=== PATIENT | female | born 1960 | race Caucasian/White ===

== ENCOUNTER 2019-11-28 11:19 | Inpatient (IN) | payer OTHER ==
[~2019-11-28] VITALS: Ht 170.2 cm; Wt 69.9 kg
[~2019-11-28 11:19] MED LIST: AMOX1TAB PO; IBUP400T98 PO
--- NOTE | 2019-11-28 11:19 | NUR ---
Patient BIBA BLS, transferred to bed 3. RN evaluating patient at bedside.
[2019-11-28 11:25] VITALS: BP 141/84
--- NOTE | 2019-11-28 11:31 | NUR ---
BIBA C/O GENERALIZED ABDOMINAL PAIN & N/V/D X 2 DAYS. HX OF ESRD, DM, HEART PROBLEM. PER EMS PATIENT DID NOT FINISHED HER DIALYSIS BUT CALLED AMBULANCE TO ER [facility] & SHE LEFT HOSPITAL WITHOUT BEING SEEN. BLOOD SUGAR 200. ABD SOFT. PATIENT STATES PAIN OF 10/10 AT THIS TIME. PATIENT POSITIONED FOR COMFORT; HOB ELEVATED; BEDRAILS UP X2; BED DOWN. ER MD MADE AWARE OF PT STATUS.
[2019-11-28] MEDS ORDERED: NACL 0.9% 1,000 ML IV ONE (11:41)
[2019-11-28] MEDS ORDERED: ONDANSETRON 4 MG/2 ML VIAL IVP ONE (11:45)
--- NOTE | 2019-11-28 11:48 | NUR ---
furniture technician at bedside.
[2019-11-28] MEDS ORDERED: MORPHINE SULFATE 4 MG/ML SYR IVP ONE (12:05)
[2019-11-28 12:10] LABS: HEMATOCRIT 35.7 % (36-48); HEMOGLOBIN 11.3 g/dL (12.0-16.0); MEAN CORPUSCULAR HEMOGLOBIN 27 pg (27-31); MEAN CORPUSCULAR HGB CONC 32 g/dL (33-37); MEAN CORPUSCULAR VOLUME 83.2 fL (80-94); PLATELET COUNT (AUTO) 274 K/uL (140-450); RED BLOOD CELL COUNT(AUTO) 4.29 MIL/uL (4.20-5.40); RED CELL DISTRIBUTION WIDTH 16.1 % (11.6-13.7); WHITE BLOOD COUNT (AUTO) 12.6 K/uL (4.8-10.8)
--- NOTE | 2019-11-28 12:10 | NUR ---
Patient taken to CT scan via wheelchair by tech.
--- NOTE | 2019-11-28 12:25 | NUR ---
Pt noted vomiting, dark brown emesis noted, approximately 100cc noted. Dr. Tya made aware. No new orders for anti-emetics recevied at this time.
[2019-11-28 12:27] LABS: CARBON DIOXIDE 29.4 mmol/L (21-32); POTASSIUM 4.4 mmol/L (3.5-5.1); TOTAL BILIRUBIN 0.5 mg/dL (0.0-1.0)
[2019-11-28 12:30] LABS: CREATININE 6.3 mg/dL (0.6-1.3)
[2019-11-28 12:36] LABS: LYMPHOCYTES % (MANUAL) 8 % (20-46); MONOCYTES % (MANUAL) 2 % (5-12)
--- NOTE | 2019-11-28 12:40 | NUR ---
Pt expresses feeling better at this time. Pain improved. Nausea improved. Pt no longer vomiting. Pt placed into position of comfort. Call light left within reach. All needs addressed.
[2019-11-28] MEDS ORDERED: PROP20TA29 PO (13:39)
[2019-11-28] MEDS ORDERED: ATEN50TA8 PO (13:39)
[2019-11-28] MEDS ORDERED: VITA20002 PO (13:39)
[2019-11-28] MEDS ORDERED: FURO-570 PO (13:39)
[2019-11-28] MEDS ORDERED: METO-485 PO (13:39)
[2019-11-28] MEDS ORDERED: CLOP75TA55 PO (13:39)
[2019-11-28] MEDS ORDERED: CLON0.1T42 PO (13:39)
[2019-11-28] MEDS ORDERED: LISI-420 PO (13:39)
[2019-11-28] MEDS ORDERED: PROM25TA27 PO (13:39)
[2019-11-28] MEDS ORDERED: LON2.5 PO (13:39)
[2019-11-28 14:15] LABS: APPEARANCE,URINE CLEAR (CLEAR); BILIRUBIN,URINE NEGATIVE (NEGATIVE); BLOOD, URINE TRACE-I (NEGATIVE); COLOR,URINE YELLOW (YELLOW); LEUKOCYTE ESTERASE ,URINE NEGATIVE (NEGATIVE); NITRITE, URINE NEGATIVE (NEGATIVE); PH,URINE 8.5 (5.0-9.0); UGLUCOSE 2+ (NEGATIVE)
[2019-11-28 14:26] LABS: HYALINE CASTS, URINE 0-10 /LPF (None Seen); RBC,URINE 0-5 /HPF (0-5); WBC,URINE 0-5 /HPF (0-5)
--- NOTE | 2019-11-28 16:27 | NUR ---
RECEIVED REPORT FROM ER NURSE FOR CONTINUATION OF CARE. PATIENT ORIENTED TO THE UNIT, CALL LIGHT, AND BED. BED RAILS UP, BED IN LOW POSITION, WILL CONTINUE TO MONITOR.
--- NOTE | 2019-11-28 16:27 | NUR ---
Patient will be admitted to care of DR PAEZ. Admited to MS. Will go to room 125B. Belongings list completed. Report to MADAY ESPINOZA.
[2019-11-28] MEDS ORDERED: PROMETHAZINE 25 MG TAB PO PRN (16:55)
[2019-11-28] MEDS ORDERED: HYDROcodone/APAP 5/325 MG 1 TAB TAB PO PRN ×2 (17:00)
[2019-11-28] MEDS ORDERED: ACETAMINOPHEN 325 MG TAB PO PRN (17:00)
[2019-11-28] MEDS ORDERED: cloNIDine 0.1 MG TAB PO PRN (17:00)
[2019-11-28] MEDS ORDERED: POTASSIUM CHLORIDE 10 MEQ TABER PO PRN (17:00)
[2019-11-28] MEDS ORDERED: LORazepam 2 MG/ML VIAL IVP PRN (17:00)
[2019-11-28] MEDS ORDERED: BISACODYL 10 MG SUPP RC PRN (17:00)
[2019-11-28] MEDS ORDERED: ACETAMINOPHEN 650 MG SUPP RC PRN (17:00)
[2019-11-28] MEDS ORDERED: guaiFENesin DM 200/20 MG-10 ML 10 ML UDC PO PRN (17:00)
[2019-11-28] MEDS ORDERED: IPRATROPIUM 0.02% 0.5 MG/2.5 ML NEBU INH PRN (17:00)
[2019-11-28] MEDS ORDERED: MAG SULF 2000 MG/WATER PREMIX 50 ML IV PRN (17:00)
[2019-11-28] MEDS ORDERED: MAGNESIUM OXIDE 400 MG TAB PO PRN (17:00)
[2019-11-28] MEDS ORDERED: diphenhydrAMINE 50 MG/ML VIAL IVP PRN (17:00)
[2019-11-28] MEDS ORDERED: ONDANSETRON 4 MG/2 ML VIAL IVP PRN (17:00)
[2019-11-28] MEDS ORDERED: MORPHINE SULFATE 2 MG/ML SYR IVP PRN (17:00)
[2019-11-28] MEDS ORDERED: ZOLPIDEM 5 MG TAB PO PRN (17:00)
[2019-11-28] MEDS ORDERED: ALUMINUM HYD/MAG/SIMETHICONE 30 ML UDC PO PRN (17:00)
[2019-11-28] MEDS ORDERED: ALBUTEROL 0.083% 2.5 MG/3 ML NEBU INH PRN (17:00)
[2019-11-28] MEDS ORDERED: SODIUM PHOSPHATE 118 ML ENEM RC PRN (17:00)
[2019-11-28] MEDS ORDERED: DOCUSATE SODIUM 250 MG GELCAP PO PRN (17:00)
[2019-11-28] MEDS ORDERED: DEXTROSE 50% 50 ML SYR IVP PRN (17:05)
[2019-11-28] MEDS: METOCLOPRAMIDE 10 MG TAB PO SCH ×2 (18:36→21:48)
--- NOTE | 2019-11-28 19:25 | NUR ---
RECIEVED PT AAOX4 , NID , ON SL - INTACT AND PATENT , WITH HD ACCESS ON CHEST .O2 SAT WNL . ADM. ASSESSMENT DONE , POC DISCUSSED AND VERBALIZE UNDERSTANDING - CALL LIGHT WITHIN REACH , ON SAFETY PRECAUTION PROTOCOL . WILL CONT TO MONITOR - DENIES PAIN AT THIS TIME.
--- NOTE | 2019-11-28 19:25 | NUR ---
REPORT GIVEN TO AUTOMATION AND CONTROLS INSTRUCTOR NURSE FOR CONTINUATION OF CARE.
[2019-11-28 20:00] VITALS: BP 165/79
[2019-11-28] MEDS: cloNIDine 0.1 MG TAB PO SCH (21:47)
[2019-11-28] MEDS: MINOXIDIL 2.5 MG TAB PO SCH (21:47)
[2019-11-28] MEDS: BLOOD GLUCOSE MONITORING 1 DEV DEV FS SCH (21:49)
[2019-11-28] MEDS: INSULIN LISPRO SLIDING SCALE 100 UNITS/ML VIAL SUBQ PRN (21:53)
--- NOTE | 2019-11-28 22:00 | NUR ---
MADE ROUNDS , NO COMPLAIN MADE AT THIS TIME.
[2019-11-29] VITALS: BP 145/70
--- NOTE | 2019-11-29 | NUR ---
MADE ROUNDS , NO S/SXS OF ACUTE DISTRESS NOTED AT THIS TIME . WILL CONT. TO MONITOR.
--- NOTE | 2019-11-29 04:00 | NUR ---
MADE ROUNDS , NO S/SXS OF ACUTE DISTRESS NOTED AT THIS TIME , CALL LIGHT WITHIN REACH.
--- NOTE | 2019-11-29 06:00 | NUR ---
MADE ROUNDS , NO COMPLAIN MADE AT THIS TIME.
[2019-11-29] MEDS: BLOOD GLUCOSE MONITORING 1 DEV DEV FS SCH ×2 (06:12→11:48)
[2019-11-29 06:14] LABS: BASOPHILS % (AUTO) 0.4 % (0.0-2.0); EOSINOPHILS # (AUTO) 0.1 K/uL (0-0.4); EOSINOPHILS % (AUTO) 0.9 % (0.0-4.0); HEMATOCRIT 32.1 % (36-48); HEMOGLOBIN 10.2 g/dL (12.0-16.0); LYMPHOCYTES # (AUTO) 1.3 K/uL (2.5-16.5); LYMPHOCYTES % (AUTO) 13.8 % (20.5-51.1); MEAN CORPUSCULAR HEMOGLOBIN 27 pg (27-31); MEAN CORPUSCULAR HGB CONC 32 g/dL (33-37); MEAN CORPUSCULAR VOLUME 84.5 fL (80-94); MONOCYTES # (AUTO) 0.7 K/uL (0.8-1.0); MONOCYTES % (AUTO) 7.2 % (1.7-9.3); NEUTROPHILS # (AUTO) 7.6 K/uL (1.8-7.7); NEUTROPHILS % (AUTO) 77.7 % (42.2-75.2); PLATELET COUNT (AUTO) 270 K/uL (140-450); RED CELL DISTRIBUTION WIDTH 15.6 % (11.6-13.7); WHITE BLOOD COUNT (AUTO) 9.7 K/uL (4.8-10.8)
[2019-11-29] MEDS: INSULIN LISPRO SLIDING SCALE 100 UNITS/ML VIAL SUBQ PRN ×2 (06:16→12:14)
[2019-11-29 06:20] LABS: ANION GAP 12.5 (8-16); CARBON DIOXIDE 29.3 mmol/L (21-32); POTASSIUM 3.8 mmol/L (3.5-5.1)
--- NOTE | 2019-11-29 07:20 | NUR ---
RECEIVED BEDSIDE REPORT FROM SCIENTIFIC WRITER NURSE FOR CONTINUITY OF CARE. PT AWAKE AND RESTING ON BED AT THIS TIME. PT IS AAOX 3, TO NAME, PLACE, AND TIME. RESPIRATION EVEN AND UNLABORED ON RA. DENIED PAIN, NAUSEA, AND VOMITING. NO SIGNS OF DISTRESS NOTED. IV ON LAC 20G, CLEAN AND INTACT, SL. ELIE CATH ON R CHEST NOTED. OSTOMY BAG ON L LOWER ABD, SMALL AMOUNT OF YELLOW LIQUID STOOL NOTED, L BIG TOE AMPUTATED, OTHERWISE, SKIN DRY AND CLEAN. PT IS ABLE TO AMBULATE WITH ASSIST, MILD WEAKNESS NOTED. CHANGED PT INTO YELLOW GOWN AND SOCKS. DISCUSSED PLAN OF CARE WITH PT AND PT SAID OK. SAFETY MEASURES IN PLACE. BED IN LOW POSITION AND CALL LIGHT WITHIN REACH. DEMONSTRATED TO PT ON HOW TO USE THE CALL LIGHT FOR ASSISTANCE AND PT ABLE TO RETURN.
--- NOTE | 2019-11-29 07:20 | NUR ---
ENDORSED TO AM SHIFT FOR CONT. OF CARE W/TABLE CONDITION.
[2019-11-29 08:00] VITALS: BP 183/82
--- NOTE | 2019-11-29 08:33 | NUR ---
OBTAINED HEMODIALYSIS CONSENT AND PT WAS AWARE THAT SHE IS GOING TO GET HEMODIALYSIS TODAY. CALLED PALOMO [phone] AND PROVIDED INFORMATION OF PT AND CONSENT WAS OBTAINED. CULVER WAS AWARE.
--- NOTE | 2019-11-29 08:34 | NUR ---
PATIENT HAS BEEN SCREENED AND CATEGORIZED MODERATE NUTRITION RISK. PATIENT WILL BE SEEN WITHIN 3-5 DAYS OF ADMISSION. 12/01/19 12/03/[address]
--- NOTE | 2019-11-29 08:52 | NUR ---
DISCHARGE PLANNIN59 Y/O FEMALE FROM HOME, WHO CAME IN DUE TO EPIGASTRIC PAIN, DIARRHEA, NAUSEA AND VOMITING. PAST MEDICAL HISTORY INCLUDE ESRD, HTN AND DIABETES MELLITUS. INITIAL DIAGNOSIS OF GASTRITIS. CURRENT LABS INCLUDE WBC 9.7, H/H 10.2/32.1, NA/K 140/3.8, BUN 38/7.0. URINE AND BLOOD C/S PENDING. CXR ON ADMISSION SHOWED MILD CARDIOMEGALY. CT OF ABD/PELVIS SHOWED SMALL PERICARDIAL EFFUSION. NEPHRO CONSULT WITH DR. PALMER FOR HD. DC PLAN TO HOME ONCE STABLE.
[2019-11-29] MEDS ORDERED: ATENOLOL 50 MG TAB PO SCH (09:00)
[2019-11-29] MEDS: cloNIDine 0.1 MG TAB PO SCH (09:00)
[2019-11-29] MEDS ORDERED: CLOPIDOGREL 75 MG TAB PO SCH (09:00)
[2019-11-29] MEDS ORDERED: FUROSEMIDE 40 MG TAB PO SCH (09:00)
[2019-11-29] MEDS ORDERED: LISINOPRIL 20 MG TAB PO SCH (09:00)
[2019-11-29] MEDS ORDERED: CHOLECALCIFEROL 1,000 IU TAB PO SCH (09:00)
[2019-11-29] MEDS ORDERED: NON-FORMULARY ITEM (Cholecalciferol (Vitamin D3) (Vitamin D3) 50 MCG) PO SCH (09:00)
[2019-11-29] MEDS: MINOXIDIL 2.5 MG TAB PO SCH (09:00)
--- NOTE | 2019-11-29 09:33 | NUR ---
ASSISTED PT TO USED THE BATHROOM AND BACK ON BED SAFELY. GAIT UNSTEADY. EMPTIED OSTOMY BAG AND MEASURED 15 ML. PT IS TALKING TO AGGIE BY BEDSIDE. NO SIGNS OF DISTRESS NOTED. SAFETY MEASURES IN PLACE. BED IN LOW POSITION AND CALL LIGHT WITHIN REACH. BED ALARM ACTIVATED. INSTRUCTED PT TO USE THE CALL LIGHT FOR ANY ASSISTANCE AND PT SAID OK.
[2019-11-29] MEDS: METOCLOPRAMIDE 10 MG TAB PO SCH ×2 (09:56→13:13)
--- NOTE | 2019-11-29 09:57 | NUR ---
ADMINISTERED AM SCHEDULED MEDS, HOLD ALL BP MEDS DUE TO PT IS GOING TO GET HEMODIALYSIS, EDUCATED PT ON MEDS AND PT VERBALIZED UNDERSTANDING. PT IS AWAKE AND TALKING TO , AGGIE, AT BEDSIDE. NO SIGNS OF DISTRESS, BED AT LOWEST POSITION, CALL LIGHT WITHIN REACH.
--- NOTE | 2019-11-29 11:02 | NUR ---
DR PALMER CAME BY TO CONSULT PT'S DIAGNOSIS. DR PALMER ASSESSED AND TALKED TO PT BY BEDSIDE. PT WILL BE GETTING HEMODIALYSIS TODAY, HER TYPICAL SCHEDULE IS MONDAY, MONDAY, AND MONDAY. NO SIGNS OF DISTRESS NOTED. SAFETY MEASURES IN PLACE. BED IN LOW POSITION AND CALL LIGHT WITHIN REACH. BED ALARM ACTIVATED.
--- NOTE | 2019-11-29 11:09 | NUR ---
BEADER TENDER IS BY BEDSIDE AND GETTING PT FOR DIALYSIS. NO SIGNS OF DISTRESS NOTED.
[2019-11-29 12:00] VITALS: BP 170/84
--- NOTE | 2019-11-29 12:14 | NUR ---
PT RECEIVED HER LUNCH TRAY, ADMINISTERED 2 UNITS OF HUMALOG FOR BLOOD GLUCOSE 167, PT TOLERATED WELL. PT IS GOING TO EAT HER LUNCH. MELT HOUSE DRAG OPERATOR IS BY BEDSIDE AND PT IS IN DIALYSIS. NO SIGNS OF DISTRESS NOTED. SAFETY MEASURES IN PLACE. BED IN LOW POSITION AND CALL LIGHT WITHIN REACH. BED ALARM ACTIVATED.
--- NOTE | 2019-11-29 12:15 | NUR ---
FIRE EXTINGUISHER TECHNICIAN assessment/discharge plan Name: Niko Pratt Home Relationship: Pre-Admission Living Arrangements: Lives with Other Other: Niko Pratt Prior ADL Needs Assistance Current DME/02 Name/Tel: no home O2 Current Dialysis Name/Tel: [facility] MWF 6am Healthcare Decision Maker: Patient Advance Directive No Tentative Discharge Plan Summary: Patient is a 59 year old female admitted for gastritis. I met with patient at bedside. Patient alert and oriented x4. Patient lives at home with her Niko Pratt and plans to return home upon discharge. Patient's pcp is Chavo Zamora and she does not have any difficulty filling her prescriptions at pharmacy. She stated she has an [facility] caregiver Naima Arellano who helps her with ADLs and transportation. I offered her education on Advance Directive, patient declined education/information. She does not have any questions/concerns at this time. Molded Goods Spot Picker and/or Sales Agent [employer] will follow up as needed. Signature: RAMÍREZ Diop Date: Nov 29, 2019
--- NOTE | 2019-11-29 13:15 | NUR ---
ADMINISTERED SCHEDULED MEDICATION AT THIS TIME, PT WAS ABLE TO TOLERATE PO MED. PROVIDED MED EDUCATION TO PT, PT VERBALIZED UNDERSTANDING. PT IS IN DIALYSIS. NO SIGNS OF DISTRESS NOTED. DIALYSIS NURSE BY BEDSIDE. SAFETY MEASURES IN PLACE. BED IN LOW POSITION AND CALL LIGHT WITHIN REACH. BED ALARM ACTIVATED.
[2019-11-29 14:00] VITALS: BP 142/59
--- NOTE | 2019-11-29 14:04 | NUR ---
DR PAEZ IS TALKING TO PATIENT AT BEDSIDE. NO SIGNS OF DISTRESS NOTED. SAFETY MEASURES IN PLACE.
--- NOTE | 2019-11-29 14:13 | NUR ---
INFORMED PT THAT SHE WILL BE DC HOME TODAY. PT WAS AWARE AND SAID "I WILL CALL MY TO PICK ME UP." PT IS LAYING ON BED. NO SIGNS OF DISTRESS NOTED. SAFETY MEASURES IN PLACE. BED IN LOW POSITION AND CALL LIGHT WITHIN REACH. BED ALARM ACTIVATED.
--- NOTE | 2019-11-29 15:10 | NUR ---
DISCHARGE INSTRUCTION PROVIDED TO PT AND AGGIE AT BEDSIDE. EDUCATED ON FOLLOW UP WITH MD, SEEK MEDICAL HELP IN CASE OF EMERGENCY, MEDICATIONS REGIMEN, SIDE EFFECTS, DISEASE MANAGEMENT, AND DIET. BOTH VERBALIZED UNDERSTANDING. REMOVED IV AND CANNULA INTACT, NO BLEEDING AT IV SITE. REMOVED ALL ARM BANDS. PT IS UP TO DATE WITH FLU AND PNA VACCINATIONS. NO PRESCRIPTION PROVIDED. AGGIE CHECKED ALL THE CABINETS AND TOOK ALL PT'S BELONGINGS HOME. PT CHANGED INTO HER OWN CLOTHES. WHEELCHAIR PT TO THE FRONT LOBBY. PT IS GOING TO HI HOME ACCOMPANY BY AGGIE. PT IS IN STABLE CONDITION.
== END 2019-11-29 15:10 | disposition home or self-care (01) | DRG 391 ==
LOC: MED 11:19 → MMU 15:51
PROVIDERS: ADMIT Internal Medicine Pulmonary Disease; ATTEND Internal Medicine Pulmonary Disease
PROC: 5A1D70Z Performance of Urinary Filtration, Intermittent, Less than 6 Hours Per Day (ICD-10-PCS; principal; 2019-11-29)
DX: A09 Infectious gastroenteritis and colitis, unspecified (principal); N18.6 End stage renal disease; I12.0 Hypertensive chronic kidney disease with stage 5 chronic kidney disease or end stage renal disease; A05.9 Bacterial foodborne intoxication, unspecified; Z99.2 Dependence on renal dialysis; E11.22 Type 2 diabetes mellitus with diabetic chronic kidney disease; Z93.3 Colostomy status; Z88.5 Allergy status to narcotic agent
CPT/HCPCS: 36415; 71045; 80048; 80053; 81001; 82948; 83605; 85025; 87040; 87081; 87086; 90935; 93005; 96361; 96374; 96375; 99285; C1758; J1815; J2270; J2405; J7030; J8597; Q0092

== ENCOUNTER 2019-12-02 04:18 | Inpatient (IN) | payer OTHER ==
[~2019-12-02] VITALS: Ht 170.2 cm; Wt 70.3 kg
[~2019-12-02 04:18] MED LIST changes: -AMOX1TAB PO; +ATEN50TA8 PO; +CLON0.1T42 PO; +CLOP75TA55 PO; +FURO-570 PO; -IBUP400T98 PO; +LISI-420 PO; +LON2.5 PO; +METO-485 PO; +PROM25TA27 PO; +PROP20TA29 PO; +VITA20002 PO
--- NOTE | 2019-12-02 04:20 | NUR ---
PT ASHISH ALS. TAKEN TO BED 10
[2019-12-02 04:22] VITALS: BP 196/74
--- NOTE | 2019-12-02 04:32 | NUR ---
59 Y/O FEMALE BIBA FROM HOME. C/O DIFFICULTY BREATHING. PT STATES HAVING SOB X1 WEEK, WOKE UP THIS MORNING WITH WORSENING SYMPTOM. PT WAS PLACED ON OXYGEN VIA NC BY ROBOTICS TESTING TECHNICIAN. PT DENIES ANY CHEST PAIN. LUNG SOUNDS BILAT CLEAR. SPO2 AT 100% ROOM AIR DURING ASSESSMENT. NO FEVER NOTED. PT HAS HX OF ESRD, LAST DIALYSIS ON MONDAY. ERMD MADE AWARE. WILL CONTINUE TO MONITOR.
--- NOTE | 2019-12-02 04:37 | NUR ---
Dr. Norman examining patient.
--- NOTE | 2019-12-02 05:24 | NUR ---
X-Ray at bedside.
--- NOTE | 2019-12-02 05:38 | NUR ---
BLOOD DRAWN AND SENT TO LAB AT THIS TIME
[2019-12-02 05:53] LABS: BASOPHILS % (AUTO) 0.3 % (0.0-2.0); EOSINOPHILS # (AUTO) 0.1 K/uL (0-0.4); EOSINOPHILS % (AUTO) 1.7 % (0.0-4.0); HEMATOCRIT 33.7 % (36-48); HEMOGLOBIN 10.8 g/dL (12.0-16.0); LYMPHOCYTES # (AUTO) 0.7 K/uL (2.5-16.5); LYMPHOCYTES % (AUTO) 8.8 % (20.5-51.1); MEAN CORPUSCULAR HEMOGLOBIN 27 pg (27-31); MEAN CORPUSCULAR HGB CONC 32 g/dL (33-37); MEAN CORPUSCULAR VOLUME 83.1 fL (80-94); MONOCYTES # (AUTO) 0.5 K/uL (0.8-1.0); NEUTROPHILS % (AUTO) 83.2 % (42.2-75.2); PLATELET COUNT (AUTO) 245 K/uL (140-450); RED BLOOD CELL COUNT(AUTO) 4.05 MIL/uL (4.20-5.40); RED CELL DISTRIBUTION WIDTH 15.8 % (11.6-13.7); WHITE BLOOD COUNT (AUTO) 8.5 K/uL (4.8-10.8)
[2019-12-02 06:14] LABS: ALBUMIN 2.8 g/dL (3.4-5.0); ANION GAP 15.4 (8-16); CARBON DIOXIDE 24.6 mmol/L (21-32); TOTAL BILIRUBIN 0.6 mg/dL (0.0-1.0)
[2019-12-02 06:18] LABS: CREATININE 8.4 mg/dL (0.6-1.3)
--- NOTE | 2019-12-02 07:30 | NUR ---
PT ADMITTED TO [facility] RM 117. TRANSFERRED PT VIA GURNEY, STABLE CONDITION. REPORT GIVEN TO MER ESPINOZA. TRANSFER OF CARE AT THIS TIME.
--- NOTE | 2019-12-02 07:35 | NUR ---
RECEIVED PT FROM ER NURSE FOR CONTINUITY OF CARE. PT IS AAOX3, AMBULATORY WITH ASSISTANCE. PT ABLE TO VERBALIZE NEEDS AND MAKE THEM KNOWN WELL. PT HAS RIGHT HAND 22G. SALINE LOCKED UNTIL MD ORDERS RECEIVED. PT HAS SON AT BEDSIDE. PT TO HAVE DIALYSIS TODAY. HD SCHEDULE IS MONDAY, MONDAY, MONDAY. PT ON NC 2L WITH O2 SAT AT 97%. DISCUSSED POC WITH PT AND PT VERBALIZED UNDERSTANDING. BED IN LOW POSITION, CALL LIGHT WITHIN REACH. WILL ROUND FREQUENTLY ON PT.
[2019-12-02 08:00] VITALS: BP 172/79
--- NOTE | 2019-12-02 09:24 | NUR ---
PT RESTING IN BED. ALL NEEDS MET.
--- NOTE | 2019-12-02 11:42 | NUR ---
PT RESTING IN BED. ALL NEEDS MET.
[2019-12-02] MEDS ORDERED: MECLIZINE 25 MG TAB PO PRN (11:45)
[2019-12-02 12:00] VITALS: BP 145/48
--- NOTE | 2019-12-02 12:14 | NUR ---
DC PLANNIN YRS OLD FEMALE PATIENT WAS ADMITTED FROM HOME WITH A DX OF SOB. PT HAS A HX OF ESRD, HD MWF, HTN ,DM AND ASTHMA. POSITIVE TROPONIN CONSULTED WITH CONSOLE MANAGER , DR KAREEM TA FOR HD ,CONTINUE HOME MEDS , RT PROTOCOL . DC PLAN TO GO HOME WHEN STABLE. CM TO FOLLOW.
[2019-12-02] MEDS: METOCLOPRAMIDE 10 MG TAB PO SCH ×3 (12:29→21:37)
[2019-12-02] MEDS: PROMETHAZINE 25 MG TAB PO PRN (12:30)
--- NOTE | 2019-12-02 12:45 | NUR ---
PATIENT HAS BEEN SCREENED AND CATEGORIZED MODERATE NUTRITION RISK. PATIENT WILL BE SEEN WITHIN 3-5 DAYS OF ADMISSION. 12/04/19 12/06/[address]
--- NOTE | 2019-12-02 13:21 | NUR ---
PT EATING LUNCH. ALL NEEDS MET.
[2019-12-02] MEDS ORDERED: cloNIDine 0.1 MG TAB PO SCH ×2 (14:00→21:00)
[2019-12-02] MEDS: MORPHINE SULFATE 2 MG/ML SYR IVP PRN (14:46)
--- NOTE | 2019-12-02 15:42 | NUR ---
PT ASLEEP. ALL NEEDS MET.
[2019-12-02 16:00] VITALS: BP 124/67
[2019-12-02] MEDS ORDERED: DEXTROSE 50% 50 ML SYR IVP PRN (16:30)
[2019-12-02] MEDS: cloNIDine 0.1 MG TAB PO SCH (17:00)
[2019-12-02] MEDS: BLOOD GLUCOSE MONITORING 1 DEV DEV FS SCH ×2 (17:24→21:43)
--- NOTE | 2019-12-02 17:40 | NUR ---
PT DIALYSIS DONE. 3L OUTPUT. PT STABLE. ALL NEEDS MET.
[2019-12-02] MEDS: ACETAMINOPHEN 325 MG TAB PO PRN (17:57)
[2019-12-02] MEDS: INSULIN LISPRO SLIDING SCALE 100 UNITS/ML VIAL SUBQ PRN ×2 (18:02→21:43)
--- NOTE | 2019-12-02 19:30 | NUR ---
CHANGE OF SHIFT REPORT GIVEN BY DAY SHIFT NURSE MER. PATIENT DENIES PAIN. AFEBRILE. PATIENT HAS LEFT ARM 22 G SALINE LOCKED. STATES ON RENAL DIET. AND ONLY ALLOWED THE ONE PITCHER OF H20 THAT IS IN HER ROOM. STATES STRICT I AND O. STATES SHE WILL CALL WHEN NEEDS ASSISTANCE TO BATHROOM. CLEAR LUNG SOUNDS. RESPIRATIONS SYMMETRICAL. BOWEL SOUNDS ACTIVE. DENIES PAIN. AAOX4. NAME, PLACE, SITUATION, DATE. STATES SHES HERE D/T FLUID OVERLOAD. DIALYSIS CATHETER RIGHT UPPER CHEST. NO BLEEDING OR DISCHARGE NOTED. HX HTN. STATES NO BM ON DAY SHIFT. RENAL DIET NOTED. ON 2L OXYGEN VIA N/C. ST. [facility]. Addendum: 12/03/19 at 0515 by Maryanne Issa RN NO SOB OR DISTRESS NOTED. CALL LIGHT WITHIN REACH.
--- NOTE | 2019-12-02 19:39 | NUR ---
ENDORSED PT TO SUBSTATION OPERATOR HELPER FOR CONTINUITY OF CARE. PT IN STABLE CONDITION AT THIS TIME.
[2019-12-02 20:00] VITALS: BP 157/66
--- NOTE | 2019-12-02 21:15 | NUR ---
MEDICATION ADMINISTERED PER MD ORDERS / PATIENT TOOK PO WITHOUT ANY COUGH OR INJURIES. NO SOB OR DISTRESS NOTED. DENIES PAIN. "IM GOOD" WILL CONTINUE TO MONITOR.
[2019-12-02] MEDS: PROPRANOLOL 20 MG TAB PO SCH (21:36)
[2019-12-02] MEDS: MINOXIDIL 2.5 MG TAB PO SCH (21:36)
--- NOTE | 2019-12-02 22:10 | NUR ---
PATIENT COMPLAINING OF DIZZINESS, BUT DENIES NAUSEA OR VOMITING. RECHECKED VITAL SIGNS-HR 84, BP-152/63, RESPIRATIONS 29, SATURATIONS 84%, INCREASED NASAL CANNULA TO 3L, SATURATIONS 99%. ASSISTED PATIENT IN REPOSITIONING, LOWERED HEAD OF BED TO 30 DEGREES. ALL NEEDS MET. WILL REASSESS.
--- NOTE | 2019-12-02 23:00 | NUR ---
PATIENT RESTING WELL IN BED, EYES CLOSED. SIDERAILS UP x3, SAFETY ALARMS IN PLACE. NO DISTRESS OR SOB NOTED. WILL CONTINUE TO MONITOR.
[2019-12-03] VITALS: BP 127/46
--- NOTE | 2019-12-03 01:35 | NUR ---
CHECKED IN ON PATIENT, LYING LEFT LATERAL POSITION, EYES CLOSED, EQUAL AND EVEN CHEST RISE, NO SIGNS OF DISTRESS, FLACC 0. CONNECTED TO TELE MONITOR, POSITIVE RADIAL PULSES. NASAL CANNULA IN PLACE 3L, SAFETY ALARMS IN PLACE AND CALL LIGHT WITHIN REACH. WILL CONTINUE TO MONITOR.
--- NOTE | 2019-12-03 03:22 | NUR ---
patient lying in bed on right side. resp wnl. flacc. no sob or distress noted. pt able to make needs known. will continue to monitor at this time.
[2019-12-03 04:00] VITALS: BP 124/74
--- NOTE | 2019-12-03 04:55 | NUR ---
PATIENT LYING IN BED SLEEPING. FLACC O. LYING IN RIGHT SIDE. NO SOB OR DISTRESS NOTED
--- NOTE | 2019-12-03 05:32 | NUR ---
PATIENT REQUESTED TO TAKE THE AIR OUT OF HER COLOSTOMY BAG. NO FLUIDS OR FECAL MATTER PRESENT. PATIENT STATES "THAT IS BETTER" NO SOB NO DISTRESS NOTED. PATIENT STATES DOES NOT NEED TO GET UP TO GO TO THE BATHROOM. WILL CONTINUE TO MONITOR. CALL LIGHT WITHIN REACH
--- NOTE | 2019-12-03 06:00 | NUR ---
PATIENT WENT TO BATHROOM WITH ASSISTANCE FROM CAMP DIRECTOR. URINE NOTED. UNKNOWN AMOUNT IN TOILET PER CAMP DIRECTOR. ASSISTED IN BED. NO INJURIES NOTED.CALL LIGHT WITHIN REACH
[2019-12-03] MEDS: BLOOD GLUCOSE MONITORING 1 DEV DEV FS SCH ×4 (06:53→21:41)
[2019-12-03] MEDS: INSULIN LISPRO SLIDING SCALE 100 UNITS/ML VIAL SUBQ PRN ×4 (06:54→21:38)
[2019-12-03 07:33] LABS: BASOPHILS % (AUTO) 0.7 % (0.0-2.0); EOSINOPHILS # (AUTO) 0.1 K/uL (0-0.4); HEMATOCRIT 36.4 % (36-48); HEMOGLOBIN 11.8 g/dL (12.0-16.0); LYMPHOCYTES % (AUTO) 14.7 % (20.5-51.1); MEAN CORPUSCULAR HEMOGLOBIN 27 pg (27-31); MEAN CORPUSCULAR HGB CONC 32 g/dL (33-37); MEAN CORPUSCULAR VOLUME 82.9 fL (80-94); MONOCYTES # (AUTO) 0.6 K/uL (0.8-1.0); MONOCYTES % (AUTO) 9.3 % (1.7-9.3); NEUTROPHILS % (AUTO) 73.3 % (42.2-75.2); PLATELET COUNT (AUTO) 258 K/uL (140-450); RED CELL DISTRIBUTION WIDTH 16.1 % (11.6-13.7)
--- NOTE | 2019-12-03 07:36 | NUR ---
RECEIVED BEDSIDE REPORT FROM CUTTER FIRST NURSE FOR CONTINUITY OF CARE. PT AWAKE AND RESTING ON BED. PT IS AAOX3, TO NAME, PLACE AND TIME. RESPIRATION EVEN AND UNLABORED ON 3LPM VIA NC. DENIED PAIN, NAUSEA AND VOMITING. NO SIGNS OF DISTRESS NOTED. IV ON R HAND, CLEAN AND INTACT, NOT INFUSING AT THIS TIME. TUNNEL CATH ON R UPPER CHEST NOTED. COLOSTOMY BAG IN PLACE AND EMPTY. PT IS ABLE TO AMBULATE WITH ASSIST AND CONTINENT. TELE MONITOR ATTACHED. FALL RISK PRECAUTION IN PLACE AND SIGN POSTED. SAFETY MEASURES IN PLACE. BED IN LOW POSITION AND CALL LIGHT WITHIN REACH. INSTRUCTED PT TO USE THE CALL LIGHT FOR ANY ASSISTANCE AND PT WAS AWARE.
--- NOTE | 2019-12-03 07:36 | NUR ---
CHANGE OF SHIFT REPORT AT BEDSIDE. PATIENT STATES "IM FINE" NO QUESTIONS. NO SOB NO DISTRESS. STABLE
[2019-12-03 07:41] LABS: ANION GAP 15.5 (8-16); CARBON DIOXIDE 28.2 mmol/L (21-32); POTASSIUM 4.7 mmol/L (3.5-5.1)
[2019-12-03 07:46] LABS: MAGNESIUM 1.7 mg/dL (1.8-2.4); PHOSPHORUS 4.4 mg/dL (2.5-4.9)
--- NOTE | 2019-12-03 07:50 | NUR ---
RECEIVED A CRITICAL LAB FOR CR 6.3, PAGED DR RIVAS.
[2019-12-03 07:52] LABS: CREATININE 6.3 mg/dL (0.6-1.3)
--- NOTE | 2019-12-03 07:57 | NUR ---
RECEIVED A CALL BACK FROM DR RIVAS. INFORMED DR RIVAS THAT PT HAS CRITICAL OF CR 6.3 AND YESTERDAY WAS 8.4. DR RIVAS WAS AWARE AND STATED "PLEASE INFORM THE HEAD PORTER BAGGAGE WHEN HE COMES IN." NO ORDER FROM DR RIVAS AT THIS TIME.
[2019-12-03 08:00] VITALS: BP 152/65
[2019-12-03] MEDS ORDERED: FUROSEMIDE 40 MG TAB PO SCH (09:00)
[2019-12-03] MEDS: PROPRANOLOL 20 MG TAB PO SCH ×2 (09:00→21:00)
[2019-12-03] MEDS ORDERED: NON-FORMULARY ITEM (Cholecalciferol (Vitamin D3) (Vitamin D3) 50 MCG) PO SCH (09:00)
[2019-12-03] MEDS: cloNIDine 0.1 MG TAB PO SCH ×3 (09:00→18:40)
[2019-12-03] MEDS: ATENOLOL 50 MG TAB PO SCH (09:00)
[2019-12-03] MEDS: CLOPIDOGREL 75 MG TAB PO SCH (09:00)
[2019-12-03] MEDS: MINOXIDIL 2.5 MG TAB PO SCH ×2 (09:00→21:00)
[2019-12-03] MEDS: LISINOPRIL 20 MG TAB PO SCH (09:00)
[2019-12-03 09:02] LABS: WHITE BLOOD COUNT (AUTO) 6.8 K/uL (4.8-10.8)
--- NOTE | 2019-12-03 09:40 | NUR ---
INFORMED DR INIGUEZ THAT PT HAS CRITICAL LAB OF CR 6.3 AND YESTERDAY WAS 8.4. DR INIGUEZ WAS AWARE. NO ORDER RECEIVED AT THIS TIME.
--- NOTE | 2019-12-03 09:50 | NUR ---
INFORMED PT THAT DR INIGUEZ HAS ORDER HEMODIALYSIS THIS AM AND WILL HOLD ALL AM MEDS. PT WAS AWARE. PT AWAKE AND RESTING ON BED AT THIS TIME. NO SIGNS OF DISTRESS NOTED. SAFETY MEASURES IN PLACE. TELE MONITOR ATTACHED.
[2019-12-03] MEDS: MORPHINE SULFATE 2 MG/ML SYR IVP PRN ×2 (11:18→15:36)
--- NOTE | 2019-12-03 11:18 | NUR ---
PT COMPLAINED SHE HAS 8/10 PAIN AROUND HER CHEST, "IT'S SHARP." VITAL SIGNS TAKEN, TEMP 98.5, BP 148/57, PULSE 94, SPO2 98% AT 2LPM VIA NC. MEDICATED WITH PRN MORPHINE VIA IV PUSH, MED ED PROVIDED TO PT AND PT SAID OK. PT AWAKE AND RESTING ON BED AT THIS TIME. NO SIGNS OF DISTRESS NOTED. TELE MONITOR ATTACHED. SAFETY MEASURES IN PLACE. BED ALARM ACTIVATED.
[2019-12-03 12:00] VITALS: BP 145/68
--- NOTE | 2019-12-03 12:11 | NUR ---
PASSENGER AGENT assessment/discharge plan High Risk DC Screen Yes Name: Niko Pratt Home Relationship: Pre-Admission Living Arrangements: Lives with Other Other: Niko Pratt Prior ADL Needs Assistance Healthcare Decision Maker: Patient Advance Directive No - refused education/form Tentative Discharge Plan Summary: Patient is a 59 year old female admitted for SOB. I met with patient at bedside. Patient alert and oriented x4. Patient lives at home with her Niko Pratt and plans to return home upon discharge. Patient's pcp is Chavo Zamora and she does not have any difficulty filling her prescriptions at pharmacy. She stated she has an [facility] caregiver Naima Arellano who helps her with ADLs and transportation. I offered her education on Advance Directive, patient declined education/information. She does not have any questions/concerns at this time. Employment Specialist/Program Manager and/or Lead Web Developer will follow up as needed. Signature: RAMÍREZ Diop Date: Dec 03, 2019
[2019-12-03] MEDS: METOCLOPRAMIDE 10 MG TAB PO SCH ×4 (13:00→21:38)
[2019-12-03] MEDS: CHOLECALCIFEROL 1,000 IU TAB PO SCH (13:51)
[2019-12-03] MEDS: VIT-B COMP/VIT-C/FOLIC ACID 1 TAB PO SCH (13:52)
--- NOTE | 2019-12-03 13:55 | NUR ---
ADMINISTERED SCHEDULED MEDS AND PT TOLERATED WELL. MEDS ED PROVIDED TO PT AND PT SAID OK. PT IS ALMOST FINISH DIALYSIS. NO SIGNS OF DISTRESS NOTED. SAFETY MEASURES IN PLACE. TELE MONITOR ATTACHED.
--- NOTE | 2019-12-03 15:36 | NUR ---
PT COMPLAINED SHE HAS 9/10 PAIN AROUND HER CHEST. VITAL SIGNS TAKEN, TEMP 98.5, BP 138/59, PULSE 90, SPO2 98% AT 2LPM VIA NC. MEDICATED WITH PRN MORPHINE VIA IV PUSH, MED ED PROVIDED TO PT AND FAMILY AT BEDSIDE. PT AWAKE AND TALKING TO FAMILY MEMBER AT THIS TIME. NO SIGNS OF DISTRESS NOTED. TELE MONITOR ATTACHED. SAFETY MEASURES IN PLACE. BED ALARM ACTIVATED.
[2019-12-03 16:00] VITALS: BP 140/70
--- NOTE | 2019-12-03 16:24 | NUR ---
INFORMED PT THAT SHE IS CLEAR BY CONSULTS AND MAY DC HOME TODAY. PT SAID "I HAVE CHEST PAIN AND I DONT WANT TO GO HOME AND COME BACK TO THE ER." PAGED DR RIVAS.
--- NOTE | 2019-12-03 17:35 | NUR ---
PT IS TALKING TO MOM MARIA ALEJANDRA AT BEDSIDE AT THIS TIME. NO SIGNS OF DISTRESS NOTED. TELE MONITOR ATTACHED. SAFETY MEASURES IN PLACE.
[2019-12-03] MEDS ORDERED: NITROGLYCERIN 0.4 MG TAB SL PRN (18:20)
--- NOTE | 2019-12-03 18:32 | NUR ---
GIVEN REGLAN FOR NAUSEA. LAST BLOOD SUGAR CHECK: 195. GIVEN INSULIN IN THE LEFT INNER ARM.
--- NOTE | 2019-12-03 18:40 | NUR ---
ADMINISTERED SCHEDULED MED PER MD ORDER, MED ED PROVIDED TO PT AND MOM MARIA ALEJANDRA AT BEDSIDE. PT IS EATING DINNER ON BED AT THIS TIME. NO SIGNS OF DISTRESS NOTED. TELE MONITOR ATTACHED. SAFETY MEASURES IN PLACE.
--- NOTE | 2019-12-03 19:32 | NUR ---
ENDORSED PT AT BEDSIDE TO SPORTS ANALYST NURSE FOR CONTINUITY OF CARE. PT AWAKE AND TALKING TO MOM MARIA ALEJANDRA AT BEDSIDE. NO SIGNS OF DISTRESS NOTED.TELE MONITOR ATTACHED. SAFETY MEASURES IN PLACE. BED ALARM ACTIVATED.
--- NOTE | 2019-12-03 19:35 | NUR ---
RECEIVED REPORT FROM DAYSHIFT NURSE AT PATIENTS BEDSIDE. PATIENT RESTING WELL IN BED, ALERT TO VOICE, ANOx4. NASAL CANNULA IN PLACE TO 3LPM, SATURATIONS 98%. BREATHING IS EVEN AND UNLABORED. PATIENT DENIES PAIN, SOB, ANXIETY, AND DIZZINESS. CONNECTED TO TELE MONITOR, ALL VITAL SIGNS WITHIN NORMAL LIMITS. ABDOMEN SOFT AND NONTENDER. COLOSTOMY BAG IN PLACE, NO STOOL NOTED, OPENED BAG TO RELEASE AIR. PATIENT IS CONTINENT BUT NO REPORTS OF VOIDING, RECEIVED DIALYSIS TODAY WITH OUTPUT OF 2.2L. LEFT HAND PERIPHERAL IV IN PLACE, 22G, FLUSHED AND PATENT WITHOUT SYMPTOMS, SALINE LOCKED. SKIN INTACT, WARM AND DRY, AFEBRILE. PATIENT ABLE TO MOVE ALL EXTREMITIES. UPDATED ON CARE PLAN, CALL LIGHT WITHIN REACH, BED LOCKED AND IN LOWEST POSITION, AND SAFETY ALARMS IN PLACE. WILL CONTINUE TO MONITOR.
[2019-12-03 20:00] VITALS: BP 93/40
--- NOTE | 2019-12-03 21:40 | NUR ---
SCHEDULED MEDICATIONS FOR HTN NOT GIVEN, 1999 VITAL SIGNS SHOWS BLOOD PRESSURE TRENDING LOW, DIALYSIS WAS COMPLETE TODAY, RECHECKED BLOOD PRESSURE, 98/45, HOLD HTN MEDICATIONS. CHARGE NURSE MADE AWARE. PATIENT DENIES NAUSEA/DIZZINESS.
--- NOTE | 2019-12-03 23:40 | NUR ---
PATIENT COMPLAINING OF NOT BEING ABLE TO SLEEP. ASSISTED WITH REPOSITIONING FOR COMFORT. WILL CARRY OUT PRN MEDS.
[2019-12-04] VITALS: BP 98/51
--- NOTE | 2019-12-04 00:13 | NUR ---
CHECKED IN ON PATIENT, SEEN SLEEPING IN BED, SNORING. NO SIGNS OF SOB OR COUGH. BED LOCKED AND IN LOWEST POSITION. WILL CONTINUE TO MONITOR.
[2019-12-04] MEDS: ACETAMINOPHEN 325 MG TAB PO PRN (02:06)
[2019-12-04] MEDS: PROMETHAZINE 25 MG TAB PO PRN (02:07)
--- NOTE | 2019-12-04 02:08 | NUR ---
PATIENT WOKE UP COMPLAINING OF PAIN AND FEELING NAUSEOUS BUT DOES NOT NEED EMESIS BAG. RATES PAIN 7/10 AND STATES IT IS A HEADACHE. PRN MEDS AND TYLENOL GIVEN, PATIENT TOLERATED WELL.
[2019-12-04 04:00] VITALS: BP_SYST 108; BP_SYST 124; BP_DIAS 56; BP_DIAS 69
--- NOTE | 2019-12-04 04:05 | NUR ---
PATIENT RESTING WELL IN BED, CHEST RISE AND FALL, NASAL CANNULA IN PLACE 3L. LYING RIGHT LATERAL. SIDERAILS UP x3, SAFETY CHECKS/ALARMS IN PLACE. CALL LIGHT WITHIN REACH. FLACC 0
[2019-12-04] MEDS: BLOOD GLUCOSE MONITORING 1 DEV DEV FS SCH ×2 (06:10→11:30)
[2019-12-04] MEDS: INSULIN LISPRO SLIDING SCALE 100 UNITS/ML VIAL SUBQ PRN ×2 (06:57→13:35)
[2019-12-04 07:15] LABS: BASOPHILS % (AUTO) 0.7 % (0.0-2.0); EOSINOPHILS # (AUTO) 0.2 K/uL (0-0.4); EOSINOPHILS % (AUTO) 2.3 % (0.0-4.0); HEMATOCRIT 33.7 % (36-48); HEMOGLOBIN 10.7 g/dL (12.0-16.0); LYMPHOCYTES # (AUTO) 1.1 K/uL (2.5-16.5); LYMPHOCYTES % (AUTO) 14.9 % (20.5-51.1); MEAN CORPUSCULAR HEMOGLOBIN 27 pg (27-31); MEAN CORPUSCULAR HGB CONC 32 g/dL (33-37); MONOCYTES # (AUTO) 0.7 K/uL (0.8-1.0); MONOCYTES % (AUTO) 10.3 % (1.7-9.3); NEUTROPHILS # (AUTO) 5.1 K/uL (1.8-7.7); NEUTROPHILS % (AUTO) 71.8 % (42.2-75.2); PLATELET COUNT (AUTO) 230 K/uL (140-450); RED BLOOD CELL COUNT(AUTO) 4.01 MIL/uL (4.20-5.40); RED CELL DISTRIBUTION WIDTH 15.4 % (11.6-13.7); WHITE BLOOD COUNT (AUTO) 7.2 K/uL (4.8-10.8)
--- NOTE | 2019-12-04 07:15 | NUR ---
RECEIVED REPORT FROM NIGHT NURSE, PT IS AAOX4, PT RESTING IN BED, NO SIGNS OF DISTRESS NOTED, INTRODUCE SELF, UPDATE WHITEBOARD, PT ON 3L O2 NASAL CANNULA, LEFT HAND 22G SALINE LOCK, CALL LIGHT WITHIN REACH.
[2019-12-04 08:00] VITALS: BP 127/38
[2019-12-04] MEDS: MINOXIDIL 2.5 MG TAB PO SCH (09:00)
[2019-12-04] MEDS: cloNIDine 0.1 MG TAB PO SCH ×2 (09:00→13:00)
[2019-12-04] MEDS: PROPRANOLOL 20 MG TAB PO SCH (09:00)
[2019-12-04] MEDS: LISINOPRIL 20 MG TAB PO SCH (09:00)
[2019-12-04] MEDS: ATENOLOL 50 MG TAB PO SCH (09:00)
[2019-12-04] MEDS: CHOLECALCIFEROL 1,000 IU TAB PO SCH (09:47)
[2019-12-04] MEDS: VIT-B COMP/VIT-C/FOLIC ACID 1 TAB PO SCH (09:48)
[2019-12-04] MEDS: CLOPIDOGREL 75 MG TAB PO SCH (09:48)
[2019-12-04] MEDS: METOCLOPRAMIDE 10 MG TAB PO SCH ×2 (09:48→13:00)
--- NOTE | 2019-12-04 09:50 | NUR ---
GAVE ORDERED MEDICATION, HELD BLOOD PRESSURE MEDICATION PER DIALYSIS NURSE REQUEST PT IS DUE TO HAVE DIALYSIS TODAY, CALL LIGHT WITHIN REACH.
--- NOTE | 2019-12-04 11:00 | NUR ---
PT IS RESTING IN BED, PT IS STABLE, CALL LIGHT WITHIN REACH
[2019-12-04 13:00] VITALS: BP 121/78
--- NOTE | 2019-12-04 13:20 | NUR ---
PT STARTED DIALYSIS
--- NOTE | 2019-12-04 16:50 | NUR ---
PT ENDED DIALYSIS, REMOVED 2.1 LITERS, PT IS STABLE, CALL LIGHT WITHIN REACH
--- NOTE | 2019-12-04 17:50 | NUR ---
REMOVE IV, IV CANNULA INTACT, PT DISCHARGED HOME, PT STABLE, PT WHEELED OUT TO THE FRONT AND HELPED INTO THE CAR.
== END 2019-12-04 15:50 | disposition home or self-care (01) | DRG 291 ==
LOC: MED 04:18 → MTU 07:02
PROVIDERS: ADMIT Internal Medicine Pulmonary Disease; ATTEND Internal Medicine Pulmonary Disease
PROC: 5A1D70Z Performance of Urinary Filtration, Intermittent, Less than 6 Hours Per Day (ICD-10-PCS; principal; 2019-12-03)
PROC: 5A1D70Z Performance of Urinary Filtration, Intermittent, Less than 6 Hours Per Day (ICD-10-PCS; 2019-12-04)
DX: I13.2 Hypertensive heart and chronic kidney disease with heart failure and with stage 5 chronic kidney disease, or end stage renal disease (principal); N18.6 End stage renal disease; R79.89 Other specified abnormal findings of blood chemistry; F41.9 Anxiety disorder, unspecified; E11.21 Type 2 diabetes mellitus with diabetic nephropathy; E11.22 Type 2 diabetes mellitus with diabetic chronic kidney disease; D63.1 Anemia in chronic kidney disease; I16.0 Hypertensive urgency; I42.9 Cardiomyopathy, unspecified; E11.42 Type 2 diabetes mellitus with diabetic polyneuropathy; F32.9 Major depressive disorder, single episode, unspecified; I50.9 Heart failure, unspecified; J45.909 Unspecified asthma, uncomplicated; Z90.49 Acquired absence of other specified parts of digestive tract; Z99.2 Dependence on renal dialysis; Z88.5 Allergy status to narcotic agent; Z79.899 Other long term (current) drug therapy
CPT/HCPCS: 36415; 71045; 80048; 80053; 82948; 83735; 83880; 84100; 84484; 85025; 87081; 90935; 93005; 99285; J1644; J2270; J7030; J8597; Q0092; Q0169

== ENCOUNTER 2019-12-09 05:24 | Inpatient (IN) | payer OTHER ==
[~2019-12-09] VITALS: Ht 170.2 cm; Wt 67.6 kg
[2019-12-09 05:24] VITALS: BP 207/105
--- NOTE | 2019-12-09 05:24 | NUR ---
PT TO BED #3
--- NOTE | 2019-12-09 05:30 | NUR ---
59 YEAR OLD FEMALE BIBA FOR VOMITTING X 6 HOURS. BOWEL SOUNDS ACTIVE X4, NONTENDER. PATIENT BREATHING EVEN AND LABORED, LUNG SOUNDS WITH AUDIBLE CRACKLES, RR21, SPO2 100%. HR 109, BP 207/105. DR CID MADE AWARE OF PT BLOOD PRESSURE. PATIENT HAS COLOSTOMY BAG PRESENT, CLEAN DRY AT SITE. PATIENT AOX4, SKIN WARM AND DRY. BED IN LOWEST POSITION, LOCKED, BED RAIL UPX1. PATIENT STATES SHE HAS DIALYSIS MONDAY, MONDAY, FRIDAYS. LAST DIALYSIS DAY WAS ON MONDAY. PMH - DM2, DIALYSIS, STENT, FL ALLERGIES - CODEINE. Addendum: 12/09/19 at 0843 by [facility] COLOSTOMY AT ABDOMEN.
[2019-12-09] MEDS ORDERED: NACL 0.9% 1,000 ML IV ONE (05:35)
[2019-12-09] MEDS ORDERED: METOCLOPRAMIDE 10 MG/2 ML INJ VIAL IVP ONE (05:35)
[2019-12-09] MEDS ORDERED: MORPHINE SULFATE 4 MG/ML SYR IVP ONE ×2 (05:35→07:50)
[2019-12-09 06:07] LABS: BASOPHILS # (AUTO) 0.1 K/uL (0.00-0.22); BASOPHILS % (AUTO) 1.3 % (0.0-2.0); EOSINOPHILS # (AUTO) 0.1 K/uL (0-0.4); EOSINOPHILS % (AUTO) 0.7 % (0.0-4.0); HEMATOCRIT 33.9 % (36-48); HEMOGLOBIN 10.9 g/dL (12.0-16.0); LYMPHOCYTES # (AUTO) 0.7 K/uL (2.5-16.5); LYMPHOCYTES % (AUTO) 6.8 % (20.5-51.1); MEAN CORPUSCULAR HEMOGLOBIN 27 pg (27-31); MEAN CORPUSCULAR HGB CONC 32 g/dL (33-37); MEAN CORPUSCULAR VOLUME 82.9 fL (80-94); MONOCYTES # (AUTO) 0.3 K/uL (0.8-1.0); MONOCYTES % (AUTO) 3.3 % (1.7-9.3); NEUTROPHILS % (AUTO) 87.9 % (42.2-75.2); PLATELET COUNT (AUTO) 234 K/uL (140-450); RED BLOOD CELL COUNT(AUTO) 4.09 MIL/uL (4.20-5.40); RED CELL DISTRIBUTION WIDTH 15.6 % (11.6-13.7); WHITE BLOOD COUNT (AUTO) 10.3 K/uL (4.8-10.8)
--- NOTE | 2019-12-09 06:20 | NUR ---
PATIENT AOX4, BREATHING EVEN AND LABORED, COUGHING FREQUENTLY. PATIENT STATES SHE DOES NOT FEEL WELL
--- NOTE | 2019-12-09 06:20 | NUR ---
Key chapman in ED - 12/09/19 at 0745 by MEDJJ PATIENT AOX4, BREATHING EVEN AND UNLABORED, COUGHING FREQUENTLY. PATIENT STATES SHE DOES NOT FEEL WELL
[2019-12-09 06:28] LABS: ANION GAP 21.5 (8-16); CARBON DIOXIDE 21.8 mmol/L (21-32); TOTAL BILIRUBIN 0.4 mg/dL (0.0-1.0)
[2019-12-09 06:34] LABS: POTASSIUM 6.3 mmol/L (3.5-5.1)
[2019-12-09 06:35] LABS: CREATININE 8.1 mg/dL (0.6-1.3)
[2019-12-09] MEDS ORDERED: DEXTROSE 50% 50 ML SYR IVP ONE (06:50)
[2019-12-09] MEDS ORDERED: INSULIN REGULAR, HUMAN 100 UNIT/ML VIAL IVP ONE (06:50)
[2019-12-09] MEDS ORDERED: SODIUM POLYSTYRENE 15 GM/60 ML UDBTL PR ONE (06:50)
--- NOTE | 2019-12-09 07:02 | NUR ---
PATIENT AOX4, BREATHING EVEN AND LABORED
--- NOTE | 2019-12-09 07:02 | NUR ---
Key chapman in [facility], [place] - 12/09/[address] CID REMINDED OF PT HIGH BLOOD PRESSURE AND PAIN 08/29
--- NOTE | 2019-12-09 07:02 | NUR ---
DR CID NOTIFIED THAT PT STATES 10/10 PAIN AFTER MORPHINE ADMINISTRATION, AND REMINDED DR CID OF PT HIGH BLOOD PRESSURE
[2019-12-09] MEDS ORDERED: hydrALAZINE 20 MG/ML VIAL IVP ONE (07:15)
--- NOTE | 2019-12-09 07:21 | NUR ---
RECEIVED REPORT FROM TERRY ESPINOZA.
[2019-12-09] MEDS ORDERED: ONDANSETRON 4 MG/2 ML VIAL IVP ONE (07:50)
[2019-12-09 08:31] LABS: APPEARANCE,URINE HAZY (CLEAR); BILIRUBIN,URINE NEGATIVE (NEGATIVE); BLOOD, URINE 1+ (NEGATIVE); COLOR,URINE YELLOW (YELLOW); LEUKOCYTE ESTERASE ,URINE 1+ (NEGATIVE); NITRITE, URINE NEGATIVE (NEGATIVE); UGLUCOSE 2+ (NEGATIVE)
[2019-12-09 08:35] VITALS: BP 144/86
--- NOTE | 2019-12-09 08:35 | NUR ---
RECEIVED PATIENT FROM ER VIA GURNEY. RECEIVED REPORT BY OLGA BUI. PATIENT IS AAOX4. INTRODUCED SELF AND ORIENTED PATIENT TO ROOM AND STAFF. SKIN INTACT, COLOSTOMY BAG IN PLACE. IV INTACT AND PATENT TO LEFT AC. CALL LIGHT WITHIN REACH. BED IN LOW POSITION AND BED ALARM ON FOR SAFETY. WILL CONTINUE TO MONITOR.
--- NOTE | 2019-12-09 08:35 | NUR ---
Patient will be admitted to care of DR LEWIS. Admited to TELE. Will go to room 112B. Belongings list completed. Report to SUDHIR ESPINOZA.
--- NOTE | 2019-12-09 10:30 | NUR ---
DR. LEWIS AT BEDSIDE. PLANS OF CARE DISCUSSED WITH PATIENT.
[2019-12-09 12:00] VITALS: BP 179/97
[2019-12-09] MEDS: PROMETHAZINE 25 MG TAB PO PRN (12:20)
--- NOTE | 2019-12-09 12:22 | NUR ---
Cushion Builder Note: Basic Screen: Yes High Risk DC Screen [place]: AGGIE Aguirre Relationship: SIGNIFICANT OTHER Pre-Admission Living Arrangements: Lives with Other Prior ADL Needs Assistance Current Home Health Name/Tel: N/A Current DME/02 Name/Tel: [facility] Current Hospice Name/Tel: N/A Current Dialysis Name/Tel: [facility] Healthcare Decision Maker: Patient Advance Directive No - REFUSED Physician Orders for Life Sustaining Treatment Form No Patient/Family Have Educational Needs No Information Taught: Advance Directive Person Taught: Patient Teaching Tools: Verbal Factors Affecting Learning: None Participation Level: Refused Evaluation: Verbalizes Understanding Needs Additional Education: No Discipline: Case Mgt/Social Svcs Tentative Discharge Plan/Destination: No Needs Identified Will require assistance post discharge: No Referred to Buffing Machine Tender: No Tentative Discharge Plan Summary: Patient is a 59-year-old female admitted for acute renal failuire. Patient has PMHX of hypertension, diabetes, end stage renal disease, and hemodialysis MWF at [facility]. Patient was admitted from home where she lives with [facility] caregiver, Rita Arellano [phone], son, and boyfriend. met with patient and Rita Arellano at bed side to verify demographics. Per Rita, patient needs assistance bathing, shopping, and ambulating. Patient reports no history of substance abuse and no history of mental health. Patient's tentative discharge plan is to return home. No further needs identified. Signature: RAMÍREZ Weinstein Date: Dec 09, 2019 Time: 12:21
--- NOTE | 2019-12-09 12:30 | NUR ---
PAGED DR. LEWIS IN REGARDS TO ELEVATED BP 171/88.
[2019-12-09] MEDS: MORPHINE SULFATE 2 MG/ML SYR IVP PRN ×2 (13:04→21:04)
--- NOTE | 2019-12-09 13:05 | NUR ---
MEDICATED FOR PAIN WITH MORPHINE 1MG ORDERED FOR SEVERE ABDOMINAL PAIN. WILL CONTINUE TO MONITOR. WILL NOTIFY DR. LEWIS, PATIENT STILL NAUSEATED AFTER PHENERGAN HAS BEEN GIVEN.
[2019-12-09] MEDS ORDERED: ONDANSETRON 4 MG/2 ML VIAL IVP PRN (13:30)
[2019-12-09] MEDS ORDERED: LABETALOL 100 MG/20 ML VIAL IVP PRN (13:30)
--- NOTE | 2019-12-09 13:30 | NUR ---
RECEIVED ORDER TO GIVE LABETALOL 20MG IVP X1 NOW FOR ELEVATED SBP >170, ZOFRAN 4MG IVP Q4H PRN NOW. ORDERS NOTED. WILL GIVE TO PATIENT.
[2019-12-09] MEDS ORDERED: LABETALOL 100 MG/20 ML VIAL IVP SCH (13:45)
[2019-12-09] MEDS: ONDANSETRON 4 MG/2 ML VIAL IVP PRN ×2 (13:49→18:13)
--- NOTE | 2019-12-09 14:20 | NUR ---
DR. MEJIA COVERING DOCTOR FOR Singh PHAM.
--- NOTE | 2019-12-09 15:34 | NUR ---
PCP Appointment: SARA contacted Debbie from Dr. Chavo Snyder's office [phone]. SARA scheduled hospital follow up for patient to be at 1030 on 12/16/2019 @ [address] [place] [address]. Appointment slip was left in patient's chart to be given at discharge. No further needs identified.
--- NOTE | 2019-12-09 15:40 | NUR ---
DR. MEJIA VICE PRESIDENT FIXED INCOME GAVE ORDER FOR DIALYSIS PROCEDURE. CONSENT OBTAINED. PATIENT IS AWARE OF DIALYSIS TREATMENT. PALOMO CALLED DIALYSIS NURSE.
[2019-12-09 16:00] VITALS: BP 155/85
[2019-12-09] MEDS ORDERED: diphenhydrAMINE 50 MG/ML VIAL IVP PRN (16:40)
[2019-12-09] MEDS ORDERED: HYDROmorphone 1 MG/ML AMP IVP SCH (17:00)
--- NOTE | 2019-12-09 17:40 | NUR ---
PATIENT RECEIVED DILAUDID IVP 1MG. NO ALLERGIC REACTION NOTED. PATIENT AWAKE, ALERT AND VERBALLY RESPONSIVE. DENIES ANY DISCOMFORT, PATIENT REPORTS REDUCED PAIN TO 3/10 TO ABDOMINAL AREA.
--- NOTE | 2019-12-09 17:50 | NUR ---
DIALYSIS NURSE IN UNIT.
--- NOTE | 2019-12-09 18:00 | NUR ---
PATIENT AAOX4. STILL COMPLAINING OF NAUSEA WILL GIVE ZOFRAN SCHEDULED PRN. WILL CONTINUE TO MONITOR PATIENT. NO RESPIRATORY DISTRESS NOTED.
--- NOTE | 2019-12-09 18:55 | NUR ---
PATIENT RECEIVING DIALYSIS AT THIS TIME. PATIENT AWAKE, ALERT AND IN STABLE CONDITION. NO CO NAUSEA OR VOMITING AT THIS TIME. WILL ENDORSE TO NIGHT NURSE FOR CONTINUITY OF CARE.
--- NOTE | 2019-12-09 19:20 | NUR ---
RECEIVED BEDSIDE REPORT FROM DAY SHIFT NURSE SUDHIR RN, PT STABLE, NO DISTRESS NOTED, PT CURRENTLY HAVING DIALYSIS, DIALYSIS NURSE AT BEDSIDE, IV TO L AC 20G PATENT INTACT, SL, PT ON ROOM AIR, NO SOB NOTED, PT HAS COLOSTOMY, R UPPER CHEST TUNNELLED CATH, INITIAL ASSESSMENT DONE, ALL SAFETY PRECAUTION MET, CALL LIGHT WITHIN REACH, WILL CONTINUE TO MONITOR.
[2019-12-09 20:00] VITALS: BP 127/67
[2019-12-09] MEDS: MINOXIDIL 2.5 MG TAB PO SCH (21:06)
[2019-12-09] MEDS: cloNIDine 0.1 MG TAB PO SCH (21:06)
[2019-12-10] VITALS: BP 98/40
--- NOTE | 2019-12-10 00:30 | NUR ---
CALLED DR. DEL ANGEL REGARDING PT C/O UNABLE TO URINATE, BURNING SENSATION DURING ATTEMPT TO URINATE AND BLADDER SCAN SHOWED 561ML URINE, PER DR. DEL ANGEL TO ORDER PYRIDIUM 100MG PO BID, AND TO INSERT F/C, NOTIFIED PER EARLIER CONVERSATION WITH PT, PT REFUSED MACDONALD CATH, STATED OK TO DO I&O CATH OR PUT A MACDONALD CATH WHEN PT SAID OK. WILL PUT IN ORDERS AND CONTINUE WITH ORDERS.
[2019-12-10] MEDS: HYDROmorphone 1 MG/ML AMP IVP PRN ×3 (00:38→10:04)
--- NOTE | 2019-12-10 00:38 | NUR ---
PT C/O PAIN, MEDICATION ADMINISTERED, PT REFUSING MACDONALD CATH PER DR ORDER, STRAIGHT CATH PERFORMED, 700ML URINE, CLOUDY YELLOW CAME OUT, PT TOLERATED WELL, NO DISTRESS NOTED, CALL LIGHT WITHIN REACH, WILL CONTINUE TO MONITOR.
[2019-12-10 04:00] VITALS: BP 105/54
[2019-12-10] MEDS: ONDANSETRON 4 MG/2 ML VIAL IVP PRN (04:58)
--- NOTE | 2019-12-10 04:58 | NUR ---
PT FEELING NAUSEOUS, ZOFRAN GIVEN, PT TOLERATED WELL, NO DISTRESS NOTED, CALL LIGHT WITHIN REACH, WILL CONTINUE TO MONITOR.
--- NOTE | 2019-12-10 06:24 | NUR ---
PT C/O PAIN, MEDICATION GIVEN, PT TOLERATED WELL, NO DISTRESS NOTED, CALL LIGHT WITHIN REACH, WILL CONTINUE TO MONITOR.
[2019-12-10] MEDS: PROMETHAZINE 25 MG TAB PO PRN (06:45)
--- NOTE | 2019-12-10 06:45 | NUR ---
PT STILL FEELING NAUSEOUS, PHENERGAN GIVEN PER DR ORDER, PT RESTING, NO DISTRESS NOTED, CALL LIGHT WITHIN REACH, WILL CONTINUE TO MONITOR.
--- NOTE | 2019-12-10 07:30 | NUR ---
ENDORSED PT TO DAY SHIFT NURSE MINOR RN, PT STABLE, NO DISTRESS NOTED, CALL LIGHT WITHIN REACH.
--- NOTE | 2019-12-10 07:36 | NUR ---
RECEIVED BEDSIDE REPORT FROM PM RN PT AWAKE IN BED PT APPEARS STABLE AND IN NO APPARENT DISTRESS. ALL SAFETY MEASURES ARE IN PLACE. WILL CONTINUE TO MONITOR
[2019-12-10 07:52] LABS: ALBUMIN 2.7 g/dL (3.4-5.0); MAGNESIUM 1.6 mg/dL (1.8-2.4); TOTAL BILIRUBIN 0.4 mg/dL (0.0-1.0)
[2019-12-10 08:16] LABS: BASOPHILS # (AUTO) 0.1 K/uL (0.00-0.22); EOSINOPHILS # (AUTO) 0.1 K/uL (0-0.4); EOSINOPHILS % (AUTO) 0.8 % (0.0-4.0); HEMOGLOBIN 10.3 g/dL (12.0-16.0); LYMPHOCYTES # (AUTO) 0.7 K/uL (2.5-16.5); LYMPHOCYTES % (AUTO) 9.5 % (20.5-51.1); MEAN CORPUSCULAR HEMOGLOBIN 27 pg (27-31); MEAN CORPUSCULAR HGB CONC 32 g/dL (33-37); MEAN CORPUSCULAR VOLUME 83.6 fL (80-94); MONOCYTES # (AUTO) 0.5 K/uL (0.8-1.0); MONOCYTES % (AUTO) 7.6 % (1.7-9.3); NEUTROPHILS # (AUTO) 5.8 K/uL (1.8-7.7); NEUTROPHILS % (AUTO) 81.1 % (42.2-75.2); PLATELET COUNT (AUTO) 255 K/uL (140-450); RED BLOOD CELL COUNT(AUTO) 3.83 MIL/uL (4.20-5.40); RED CELL DISTRIBUTION WIDTH 15.9 % (11.6-13.7); WHITE BLOOD COUNT (AUTO) 7.2 K/uL (4.8-10.8)
[2019-12-10 08:17] VITALS: BP 140/76
[2019-12-10 08:27] LABS: POTASSIUM 4.4 mmol/L (3.5-5.1)
[2019-12-10 08:33] LABS: ANION GAP 18.9 (8-16); CARBON DIOXIDE 27.5 mmol/L (21-32)
--- NOTE | 2019-12-10 09:16 | NUR ---
FREQUENT ROUNDING ON PT PT APPEARS STABLE AND IN NO APPARENT DISTRESS. ALL SAFETY MEASURES ARE IN PLACE WILL CONTINUE TO MONITOR.
[2019-12-10] MEDS: CLOPIDOGREL 75 MG TAB PO SCH (09:46)
[2019-12-10] MEDS: LISINOPRIL 20 MG TAB PO SCH (09:46)
[2019-12-10] MEDS: MINOXIDIL 2.5 MG TAB PO SCH ×2 (09:46→21:01)
[2019-12-10] MEDS: METOCLOPRAMIDE 10 MG TAB PO SCH (09:46)
[2019-12-10] MEDS: ATENOLOL 50 MG TAB PO SCH (09:48)
[2019-12-10] MEDS: PHENAZOPYRIDINE 100 MG TAB PO SCH ×2 (09:48→21:01)
[2019-12-10] MEDS: cloNIDine 0.1 MG TAB PO SCH ×2 (09:48→21:01)
[2019-12-10] MEDS: FUROSEMIDE 40 MG TAB PO SCH (09:48)
--- NOTE | 2019-12-10 11:28 | NUR ---
FREQUENT ROUNDING ON PT PT APPEARS STABLE AND IN NO APPARENT DISTRESS. ALL SAFETY MEASURES ARE IN PLACE WILL CONTINUE TO MONITOR.
[2019-12-10 12:21] VITALS: BP 134/56
--- NOTE | 2019-12-10 13:46 | NUR ---
FREQUENT ROUNDING ON PT PT APPEARS STABLE AND IN NO APPARENT DISTRESS. ALL SAFETY MEASURES ARE IN PLACE WILL CONTINUE TO MONITOR.
[2019-12-10] MEDS: MORPHINE SULFATE 2 MG/ML SYR IVP PRN ×2 (15:00→19:01)
--- NOTE | 2019-12-10 15:02 | NUR ---
PT COMPLAINED OF 8/10 PAIN ADMINISTERED PAIN MEDICATION IVP.
--- NOTE | 2019-12-10 15:38 | NUR ---
PAIN REASSESSMENT PT STATED PAIN IS TOLERABLE PT DOESNT COMPLAIN OF ANY NAUSEA. PT APPEARS IN NO DISTRESS. PT FAMILY IS AT BEDSIDE. ALL SAFETY MEASURES ARE IN PLACE WILL CONTINUE TO MONITOR
[2019-12-10 16:05] VITALS: BP 109/56
--- NOTE | 2019-12-10 17:34 | NUR ---
FREQUENT ROUNDING ON PT PT APPEARS STABLE AND IN NO APPARENT DISTRESS. ALL SAFETY MEASURES ARE IN PLACE WILL CONTINUE TO MONITOR
--- NOTE | 2019-12-10 19:00 | NUR ---
RECEIVED BEDSIDE REPORT FROM DAY SHIFT NURSE MINOR RN, PT STABLE, NO DISTRESS NOTED, IV TO L AC 20G PATENT INTACT INFUSING WELL, R UPPER CHEST DIALYSIS CATH, DRESSING CLEAN DRY AND INTACT, PT HAS COLOSTOMY, DRAINING BROWN LIQUID WITH SOFT, INTACT,PT ON ROOM AIR, NO SOB NOTED. NO C/O PAIN AT THIS MOMENT, INITIAL ASSESSMENT DONE, ALL SAFETY PRECAUTION MET, CALL LIGHT WITHIN REACH, WILL CONTINUE TO MONITOR.
--- NOTE | 2019-12-10 19:50 | NUR ---
PT HAS NOT URINATED THROUGH OUT THE DAY, PT IS AGREEABLE TO INSERT F/C, F/C INSERTED, 100ML URINE CLOUDY, YELLOW COLORED CAME OUT AFTER INSERTION, PT TOLERATED WELL, RESTING, NO DISTRESS NOTED, CALL LIGHT WITHIN REACH, WILL CONTINUE TO MONITOR.
[2019-12-10 20:00] VITALS: BP 120/49
[2019-12-10] MEDS ORDERED: ZOLPIDEM 10 MG TAB PO PRN (21:55)
--- NOTE | 2019-12-10 21:55 | NUR ---
PAGED DR. LEWIS REGARDING PT REQUESTING MEDICATION TO HELP HER SLEEP, DR. LEWIS ORDERED 10MG AMBIEN QHS PRN, WILL PUT IN MEDICATION AND CONTINUE WITH ORDERS.
--- NOTE | 2019-12-10 23:11 | NUR ---
TALKED TO DR. LEWIS REGARDING PT BP LOW 89/36 HR 75, NO DISTRESS NOTED, EASILY AROUSED, ASYMPTOMATIC, PER DR LEWIS, TO ORDER NS BOLUS 1L, AND TO ORDER ALBUMIN 250 ML 5% ONCE, WILL PUT IN ORDERS AND CONTINUE WITH ORDERS.
[2019-12-10] MEDS ORDERED: NACL 0.9% 1,000 ML IV ONE (23:20)
[2019-12-10] MEDS ORDERED: ALBUMIN HUMAN 5 % 250 ML IV ONE (23:30)
[2019-12-11] VITALS: BP 89/36
--- NOTE | 2019-12-11 00:05 | NUR ---
PT IV LEAKING, NEW IV INSERTED TO L HAND 22G PATENT INTACT, OLD IV TAKEN OUT CATH INTACT, PT RESTING, NO DISTRESS NOTED, CALL LIGHT WITHIN REACH, WILL CONTINUE TO MONITOR.
[2019-12-11] MEDS: MORPHINE SULFATE 2 MG/ML SYR IVP PRN ×2 (00:15→08:06)
--- NOTE | 2019-12-11 00:15 | NUR ---
PT C/O PAIN, MEDICATION PER DR ORDER ADMINISTERED, PT TOLERATED WELL, NO DISTRESS NOTED, CALL LIGHT WITHIN REACH, WILL CONTINUE TO MONITOR.
--- NOTE | 2019-12-11 00:43 | NUR ---
RECHECKED PT BP AFTER BOLUS 1L, 101/41 PT SLEEPING, NO DISTRESS NOTED, CALL LIGHT WITHIN REACH, WILL CONTINUE TO MONITOR.
--- NOTE | 2019-12-11 02:31 | NUR ---
PT SLEEPING, NO DISTRESS NOTED, CALL LIGHT WITHIN REACH, WILL CONTINUE TO MONITOR.
--- NOTE | 2019-12-11 03:54 | NUR ---
CHECKED ON PT, PT SLEEPING, NO DISTRESS NOTED, V/S TAKEN, WITHIN PT BASELINE, CALL LIGHT WITHIN REACH. WILL CONTINUE TO MONITOR.
[2019-12-11 04:00] VITALS: BP 113/40
[2019-12-11 06:07] LABS: HEPATITIS A ANTIBODY IGM Negative (Negative); HEPATITIS B CORE AB TOTAL Negative (Negative); HEPATITIS B SURFACE ANTIBODY Non Reactive (.); HEPATITIS B SURFACE ANTIGEN Negative (Negative)
--- NOTE | 2019-12-11 07:33 | NUR ---
ENDORSED PT TO DAY SHIFT NURSE RN, PT STABLE, NO DISTRESS NOTED, CALL LIGHT WITHIN REACH.
--- NOTE | 2019-12-11 07:34 | NUR ---
RECEIVED PATIENT FROM HEALTHCARE RECEPTIONIST NURSE, ANG. PATIENT IS AAOX4. RESPIRATIONS EVEN AND UNLABORED, ON ROOM AIR. VISIBLE CHEST RISE NOTED. ON TELE MONITORING. ABDOMEN ROUND AND NONTENDER. COLOSTOMY IN PLACE, LIQUID BOWEL IN SMALL AMOUNT NOTED. SKIN INTACT. SKIN WARM AND DRY. IV IN THE LEFT HAND G22, SALINE LOCK. PATIENT HAS MACDONALD CATHETER. FALL PRECAUTION IN PLACE. BED IN LOW. CALL LIGHT IS WITHIN REACH. WILL CONTINUE TO MONITOR
[2019-12-11 08:00] VITALS: BP 143/83
--- NOTE | 2019-12-11 08:06 | NUR ---
GIVEN MORPHINE FOR PAIN 6/10 ABDOMINAL PAIN. EXPLAINED TO PATIENT MED. PATIENT VERBALIZED UNDERSTANDING. WILL CONTINUE TO MONITOR
[2019-12-11] MEDS: MINOXIDIL 2.5 MG TAB PO SCH (09:00)
[2019-12-11] MEDS: ATENOLOL 50 MG TAB PO SCH (09:00)
[2019-12-11] MEDS: cloNIDine 0.1 MG TAB PO SCH (09:00)
[2019-12-11] MEDS: FUROSEMIDE 40 MG TAB PO SCH (09:00)
[2019-12-11] MEDS: LISINOPRIL 20 MG TAB PO SCH (09:00)
[2019-12-11] MEDS: METOCLOPRAMIDE 10 MG TAB PO SCH (09:49)
[2019-12-11] MEDS: CLOPIDOGREL 75 MG TAB PO SCH (09:50)
[2019-12-11] MEDS: PHENAZOPYRIDINE 100 MG TAB PO SCH (09:50)
[2019-12-11] MEDS: HYDROmorphone 1 MG/ML AMP IVP PRN (09:51)
--- NOTE | 2019-12-11 10:55 | NUR ---
PATIENT IS HAVING DIALYSIS AT THIS TIME.
--- NOTE | 2019-12-11 11:45 | NUR ---
VITAL SIGNS TAKEN. PATIENT IS STILL HAVING DIALYSIS AT THIS TIME.
[2019-12-11 11:58] VITALS: BP 150/53
[2019-12-11 12:00] VITALS: BP 140/53
--- NOTE | 2019-12-11 14:00 | NUR ---
DIALYSIS DONE. OUTPUT OF 2 LITERS.
--- NOTE | 2019-12-11 14:17 | NUR ---
PATIENT IS EATING LUNCH AT THIS TIME. NO SIGNS OF DISTRESS NOTED. WILL CONTINUE TO MONITOR
--- NOTE | 2019-12-11 14:18 | NUR ---
CALLED [facility] FOR PATIENT PICKUP FOR DISCHARGE.
--- NOTE | 2019-12-11 15:13 | NUR ---
[facility], DAUGHTER SIGNED THE DISCHARGED PAPER. PATIENT AND DAUGHTER EDUCATED THAT PATIENT NEEDS TO FOLLOW UP WITH THE PCP. BOTH VERBALIZED UNDERSTANDING.
--- NOTE | 2019-12-11 15:15 | NUR ---
DISCHARGED PATIENT VIA WHEELCHAIR. [facility], DAUGHTER PICKED UP THE PATIENT. DISCONTINUED IV AND TELE MONITORING. ID BAND IS REMOVED. PATIENT IS IN STABLE CONDITION.
== END 2019-12-11 15:15 | disposition home or self-care (01) | DRG 388 ==
LOC: MED 05:24 → MTU 07:02
PROVIDERS: ADMIT Internal Medicine Pulmonary Disease; ATTEND Internal Medicine Pulmonary Disease
PROC: 5A1D70Z Performance of Urinary Filtration, Intermittent, Less than 6 Hours Per Day (ICD-10-PCS; principal; 2019-12-09)
DX: K56.600 Partial intestinal obstruction, unspecified as to cause (principal); N18.6 End stage renal disease; I12.0 Hypertensive chronic kidney disease with stage 5 chronic kidney disease or end stage renal disease; E87.5 Hyperkalemia; E66.9 Obesity, unspecified; E11.22 Type 2 diabetes mellitus with diabetic chronic kidney disease; J45.909 Unspecified asthma, uncomplicated; D63.8 Anemia in other chronic diseases classified elsewhere; K43.5 Parastomal hernia without obstruction or gangrene; Z99.2 Dependence on renal dialysis; Z93.3 Colostomy status; Z88.5 Allergy status to narcotic agent; I25.2 Old myocardial infarction
CPT/HCPCS: 36415; 71045; 74018; 80053; 81001; 82150; 82948; 83690; 83735; 85025; 86704; 86706; 86708; 86709; 86803; 87081; 87086; 87340; 90935; 96361; 96374; 96375; 96376; 99291; C1758; J0360; J1170; J1644; J1815; J2270; J2405; J2765; J3490; J7030; J8597; P9041; Q0092; Q0169

== ENCOUNTER 2020-01-07 02:42 | Inpatient (IN) | payer OTHER ==
[~2020-01-07] VITALS: Ht 170.2 cm; Wt 72.1 kg
--- NOTE | 2020-01-07 02:43 | NUR ---
PT ASHISH ALS. TAKEN TO BED 10
--- NOTE | 2020-01-07 02:44 | NUR ---
Dr. Tay examining patient.
[2020-01-07 02:47] VITALS: BP 204/87
[2020-01-07] MEDS ORDERED: NACL 0.9% 1,000 ML IV ONE (02:50)
[2020-01-07] MEDS ORDERED: MORPHINE SULFATE 4 MG/ML SYR IVP ONE ×2 (02:50→04:25)
[2020-01-07] MEDS ORDERED: ONDANSETRON 4 MG/2 ML VIAL IVP ONE (02:50)
--- NOTE | 2020-01-07 02:50 | NUR ---
LEFT LEG PEDAL PULSE +2, LEG WARM, SENSATION INTACT.
--- NOTE | 2020-01-07 02:50 | NUR ---
59 YEAR OLD PATIENT ASHISH FROM HOME. PER EMS PATIENT X1 HOUR AGO WAS IN BATHROOM AND REACHING DOWN TO GRAB SOMETHING AND THEN FELL ONTO WALL HITTING HER HEAD THEN FELL ONTO FLOOR. PATIENT GIVEN 100MCG FENTANYL IN ROUTE INTO LEFT AC 18G IV. ON ARRIVAL PATIENT PLACED ON BEDSIDE MONITOR. PATIENT COMPLAINS OF 10/10 PAIN X 1 HOUR IN LEFT LEG, LEFT LEG SHORTENING. PATIENT DENIES LOC, NO VISIBLE OPEN WOUNDS OR SWELLING PRESENT. PATIENT ON 2L NC. LEFT COLOSTOMY BAG NOTED, SITE CDI. PATIENT AOX4, BREATHING EVEN AND UNLABORED, SKIN WARM AND DRY. BED IN LOWEST POSITION, LOCKED, BED RAIL UPX2. ERMD AT BEDSIDE. HR 89, BP 204/87, RR 12, SPO2 95% ON 2L NC. PMH - HTN, DM2, NV, CKD ON DIALYSIS ALLERGIES - CODEINE
[2020-01-07 03:08] LABS: BASOPHILS % (AUTO) 0.7 % (0.0-2.0); EOSINOPHILS # (AUTO) 0.1 K/uL (0-0.4); EOSINOPHILS % (AUTO) 2.3 % (0.0-4.0); HEMOGLOBIN 10.3 g/dL (12.0-16.0); LYMPHOCYTES # (AUTO) 0.8 K/uL (2.5-16.5); LYMPHOCYTES % (AUTO) 12.6 % (20.5-51.1); MEAN CORPUSCULAR HEMOGLOBIN 27 pg (27-31); MEAN CORPUSCULAR HGB CONC 32 g/dL (33-37); MEAN CORPUSCULAR VOLUME 83.5 fL (80-94); MONOCYTES # (AUTO) 0.6 K/uL (0.8-1.0); NEUTROPHILS # (AUTO) 4.8 K/uL (1.8-7.7); NEUTROPHILS % (AUTO) 75.4 % (42.2-75.2); PLATELET COUNT (AUTO) 227 K/uL (140-450); RED BLOOD CELL COUNT(AUTO) 3.83 MIL/uL (4.20-5.40); RED CELL DISTRIBUTION WIDTH 18.2 % (11.6-13.7); WHITE BLOOD COUNT (AUTO) 6.4 K/uL (4.8-10.8)
[2020-01-07 03:18] LABS: ALBUMIN 2.9 g/dL (3.4-5.0); CARBON DIOXIDE 32.4 mmol/L (21-32); POTASSIUM 5.4 mmol/L (3.5-5.1); TOTAL BILIRUBIN 0.4 mg/dL (0.0-1.0)
--- NOTE | 2020-01-07 03:48 | NUR ---
PT TAKEN TO CT
--- NOTE | 2020-01-07 04:18 | NUR ---
PT RETURN FROM CT
[2020-01-07] MEDS ORDERED: ASPIRIN 325 MG TAB PO ONE (04:25)
--- NOTE | 2020-01-07 05:23 | NUR ---
PATIENT AOX4, BREATHING EVEN AND UNLABORED. AT BEDSIDE WATCHING MOVIE WITH HER. PATIENT REPORTS PAIN STILL PRESENT. ERMD MADE AWARE. LEFT LEG PEDAL PULSE +2, LEG WARM, SENSATION INTACT.
[2020-01-07] MEDS ORDERED: ACETAMINOPHEN EXTRA STRENGTH 500 MG TAB PO ONE (06:00)
--- NOTE | 2020-01-07 06:00 | NUR ---
PATIENT RESTING WITH EYES CLOSED, BREATHING EVEN AND UNLABORED
[2020-01-07] MEDS ORDERED: DEXTROSE 50% 50 ML SYR IVP PRN (07:30)
[2020-01-07] MEDS ORDERED: ACETAMINOPHEN 325 MG TAB PO PRN (07:30)
--- NOTE | 2020-01-07 07:30 | NUR ---
Patient will be admitted to care of DR JONES. Admited to TELE. Will go to room 114. Belongings list completed. Report to YANELIS ESPINOZA.
--- NOTE | 2020-01-07 07:30 | NUR ---
PT ADMITTED FROM ER AT THIS TIME. PT COMING FROM HOME, ARRIVED TO UNIT ON GURNEY, AAOX4, COMPLAINS OF PAIN OF 7 AT LEFT THIGH. DX L FEMUR FRACTURE. WILL MEDICATE WITH NORCO. RESPIRATIONS EVEN AND UNLABORED ON 2L O2 VIA NC. IV IN PLACE IN L AC 18G INFUSING PER ORDER, PATENT AND ASYMPTOMATIC. R FOOT DIABETIC ULCER PRESENT. COLOSTOMY BAG IN PLACE. FAMILY MEMBER AT THE BEDSIDE. SAFETY MEASURES IN PLACE. CALL LIGHT WITHIN REACH, BED IN LOW POSITION. WILL CONTINUE TO MONITOR.
[2020-01-07 08:00] VITALS: BP 124/70
[2020-01-07] MEDS: BLOOD GLUCOSE MONITORING 1 DEV DEV FS SCH ×4 (08:29→20:47)
[2020-01-07] MEDS: INSULIN LISPRO SLIDING SCALE 100 UNITS/ML VIAL SUBQ PRN ×4 (08:31→21:44)
[2020-01-07] MEDS: cloNIDine 0.1 MG TAB PO SCH ×2 (08:38→21:58)
[2020-01-07] MEDS: HYDROcodone/APAP 5/325 MG 1 TAB TAB PO PRN ×2 (08:38→16:15)
[2020-01-07] MEDS: MINOXIDIL 2.5 MG TAB PO SCH ×2 (08:39→21:45)
[2020-01-07] MEDS: LISINOPRIL 20 MG TAB PO SCH (08:39)
[2020-01-07] MEDS: ATENOLOL 50 MG TAB PO SCH (08:39)
[2020-01-07] MEDS: PROPRANOLOL 20 MG TAB PO SCH ×2 (08:39→21:45)
[2020-01-07] MEDS: FUROSEMIDE 40 MG TAB PO SCH (08:39)
--- NOTE | 2020-01-07 08:46 | NUR ---
MEDICATIONS ADMINISTERED PER ORDER. PT TOLERATED WELL, NO DISTRESS NOTED. ADMINISTERED NORCO FOR PAIN. WILL REEVALUATE. CALL LIGHT WITHIN REACH, SAFETY MEASURES IN PLACE.
--- NOTE | 2020-01-07 11:02 | NUR ---
VITAL SIGNS TAKEN AT THIS TIME. BLOOD GLUCOSE CHECKED AND 4 UNITS OF INSULIN COVERAGE GIVEN FOR BS OF 209. NO DISTRESS NOTED. WILL CONTINUE TO MONITOR.
--- NOTE | 2020-01-07 11:33 | NUR ---
DC PLANNIN YRS OLD FEMALE PATIENT WAS ADMITTED FROM HOME WITH A DX OF LEFT HIP FRACTURE . PT HAS A HX OF ESRD HEMODIALYSIS ON MWF. ADMINISTERED IVF,PAIN MEDICATION WITH NORCO , SEEN BY ORTHOPEDIC DR SALAZAR REQUESTING TO BE MEDICALLY CLEAR , NEPHRO CONSULT ORDERED. DC PLAN TO GO HOME WHEN STABLE CM TO FOLLOW Addendum: 01/08/20 at 1145 by Celestina Iqbal CM DC PLANNING SEEN BY SUPERVISOR ELECTRONIC TESTING DR MEJIA AND SOCIAL SCIENCE RESEARCH ASSISTANT DR CHUCKIE Brown HEMODIALYSIS ORDERED TODAY, PT IS ON TRACTION AND SURGERY WILL BE SCHEDULED FOR SURGERY IN THE NEXT COUPLE OF DAYS ONCE SHE IS MEDICALLY STABILIZED. CM TO FOLLOW Addendum: 01/10/20 at 1354 by Celestina Iqbal CM DC PLANNING FAXED TO [facility] THE REQUEST FOR SNF AND CHOICE OF VENDOR CONTRACTED FACILITY GIVEN TO THE PATIENT AND FAMILY .CM TO FOLLOW Addendum: 01/10/20 at 1637 by Celestina Iqbal CM DC PLANNING: FAXED TO [facility] , SPOKE WITH SHARATH AND PER SHARATH ACCEPTED PATIENT WAITING FOR THE AUTH # FROM [facility]. DC PLAN IS FOR MONDAY AND DIALYSIS OUT PATIENT TRANSPORT FORM FAXED TO [phone] CM TO FOLLOW Addendum: 01/13/20 at 1131 by Celestina Iqbal DC PLANNING: CALLED [facility] TO CHECK IF OUT PT DIALYSIS IS ALREADY SET UP. PER [employer]UAL[employer] INSURANCE CLAIM ADJUSTER TRANSPORT SET UP FOR [facility] INBOUND TELEMARKETER TIME 6 AM . NOTIFIED PT IS STILL IN THE HOSPITAL AND NEEDS TRANSPORT ON MON ,PT IS GOING TO [facility] ROOM 14C. ARRANGED TRANSPORT WITH [facility] INBOUND TELEMARKETER TIME BETWEEN 2-3 PM NOTIFIED ESTELITA GARCIA
[2020-01-07 12:00] VITALS: BP 122/45
--- NOTE | 2020-01-07 12:49 | NUR ---
PT IN BED AWAKE, NO DISTRESS NOTED. COMPLAINS OF PAIN, WILL MEDICATE. FAMILY MEMBERS AT THE BEDSIDE. SAFETY MEASURES IN PLACE. CALL LIGHT WITHIN REACH. WILL CONTINUE TO MONITOR.
--- NOTE | 2020-01-07 14:00 | NUR ---
ADMINISTERED 4MG MORPHINE FOR PAIN. PT TOLERATED WELL. NO DISTRESS NOTED. WILL CONTINUE TO MONITOR.
[2020-01-07] MEDS: MORPHINE SULFATE 4 MG/ML SYR IVP PRN (14:01)
--- NOTE | 2020-01-07 15:28 | NUR ---
MACDONALD CATH INSERTED AT THIS TIME. PT TOLERATED WELL, NO SIGNS OF DISTRESS NOTED. 350ML URINE OUTPUT. WILL CONTINUE TO MONITOR.
--- NOTE | 2020-01-07 15:59 | NUR ---
PATIENT HAS BEEN SCREENED AND CATEGORIZED MODERATE NUTRITION RISK. PATIENT WILL BE SEEN WITHIN 3-5 DAYS OF ADMISSION. 01/09/20 01/11/[address]
[2020-01-07 16:00] VITALS: BP 155/79
[2020-01-07] MEDS: ONDANSETRON 4 MG/2 ML VIAL IVP PRN (16:15)
--- NOTE | 2020-01-07 16:22 | NUR ---
PALOMO FROM DIALYSIS NOTIFIED WITH THE HD ORDER FOR TOMORROW. YANELIS CARCAMO MADE AWARE.
--- NOTE | 2020-01-07 16:31 | NUR ---
GAVE PT NORCO FOR PAIN AND ZOFRAN FOR NAUSEA. MONITORED BLOOD GLUCOSE AND GAVE 4 UNITS OF INSULIN FOR BLOOD SUGAR OF 228. WILL CONTINUE TO MONITOR.
--- NOTE | 2020-01-07 17:01 | NUR ---
P.T. NOTES OHT SET UP, RN & FOREST LOGISTICS MANAGER AWARE.
--- NOTE | 2020-01-07 18:21 | NUR ---
PT IN BED AWAKE, ACCOMPANIED BY FAMILY MEMBERS. RESPIRATIONS EVEN AND UNLABORED ON O2 2L NC. DENIES PAIN AT THIS TIME. SAFETY MEASURES IN PLACE. CALL LIGHT WITHIN REACH. WILL CONTINUE TO MONITOR.
--- NOTE | 2020-01-07 19:05 | NUR ---
REPORT GIVEN TO NIGHT NURSE FOR CONTINUITY OF CARE.
--- NOTE | 2020-01-07 19:06 | NUR ---
RECEIVED REPORT FROM LOW DAMIAN, FOR DIALYSIS TMRW. NO CONSENT YET. AAOX4, WITH PAIN ON THE LEFT LE FOR DX: L FEMORAL FRACTURE. WILL MEDICATE LATER. RESPIRATIONS EVEN AND UNLABORED ON 2L O2 VIA NC. IV IN PLACE IN L AC 18G NS PATENT AND ASYMPTOMATIC. R FOOT DIABETIC ULCER (PLANTAR ASPECT OF FOOT) PRESENT. COLOSTOMY BAG IN PLACE, NO BM NOTED. CALL LIGHT WITHIN REACH, BED IN LOW POSITION. WILL CONTINUE TO MONITOR.
[2020-01-07 20:00] VITALS: BP 133/51
--- NOTE | 2020-01-07 21:55 | NUR ---
BP 163/53, HR 70, CLONIDINE GIVEN;
[2020-01-08] VITALS: BP 118/48
[2020-01-08] MEDS ORDERED: NACL 0.9% 500 ML IV SCH (00:25)
[2020-01-08] MEDS: MORPHINE SULFATE 4 MG/ML SYR IVP PRN ×4 (01:35→21:17)
--- NOTE | 2020-01-08 01:39 | NUR ---
C/O OF PAIN ON THE LEFT LE, 9/10 ADMINISTERED WITH MORPHINE.
--- NOTE | 2020-01-08 01:52 | NUR ---
PATIENT PLACED IN A TRAPEZE BED IN PREPARATION FOR TRACTION IN THE FUTURE
--- NOTE | 2020-01-08 01:53 | NUR ---
PT CRYING IN PAIN, EXPLAINED TO PT GIVEN MORPHINE AND WILL TAKE TIME TO WORK. EXPLAINED THE BENEFITS AND RISKS.
[2020-01-08 04:00] VITALS: BP 118/48
[2020-01-08] MEDS: BLOOD GLUCOSE MONITORING 1 DEV DEV FS SCH ×4 (05:18→21:41)
[2020-01-08] MEDS: INSULIN LISPRO SLIDING SCALE 100 UNITS/ML VIAL SUBQ PRN ×3 (05:20→21:42)
--- NOTE | 2020-01-08 06:58 | NUR ---
ENDORSED TO NEXT SHIFT FOR HD TODAY. PT STABLE AT THIS TIME DURING ENDORSEMENT
--- NOTE | 2020-01-08 07:12 | NUR ---
RECEIVED PATIENT FROM CART ATTENDANT NURSE FOR CONTINUITY OF CARE. PATIENT IS AAOX4. RESPIRATIONS EVEN AND UNLABORED, ON 2L O2 VIA NC. VISIBLE CHEST RISE NOTED. ON TELE MONITORING. ABDOMEN SOFT, ROUND, NONTENDER. SKIN WARM AND DRY. PRESSURE ULCER IN THE RIGHT PLANTAR ASPECT, OPEN TO AIR. PATIENT HAS A FEMORAL FRACTURE IN THE LEFT HIP. TRAPEZE IN THE BED NOTED. C/O 9/10 HIP PAIN. WILL MEDICATE. PATIENT IS BEDBOUND. STANDARD ISOLATION. BED IN LOW POSITION. CALL LIGHT IS WITHIN REACH. WILL CONTINUE TO MONITOR.
[2020-01-08 07:17] LABS: BASOPHILS # (AUTO) 0.1 K/uL (0.00-0.22); BASOPHILS % (AUTO) 0.8 % (0.0-2.0); EOSINOPHILS # (AUTO) 0.3 K/uL (0-0.4); EOSINOPHILS % (AUTO) 3.8 % (0.0-4.0); HEMOGLOBIN 9.4 g/dL (12.0-16.0); LYMPHOCYTES # (AUTO) 0.8 K/uL (2.5-16.5); LYMPHOCYTES % (AUTO) 10.3 % (20.5-51.1); MEAN CORPUSCULAR HEMOGLOBIN 28 pg (27-31); MEAN CORPUSCULAR HGB CONC 32 g/dL (33-37); MEAN CORPUSCULAR VOLUME 85.5 fL (80-94); MONOCYTES # (AUTO) 0.6 K/uL (0.8-1.0); MONOCYTES % (AUTO) 7.1 % (1.7-9.3); NEUTROPHILS # (AUTO) 6.1 K/uL (1.8-7.7); PLATELET COUNT (AUTO) 216 K/uL (140-450); RED BLOOD CELL COUNT(AUTO) 3.39 MIL/uL (4.20-5.40); RED CELL DISTRIBUTION WIDTH 18.1 % (11.6-13.7); WHITE BLOOD COUNT (AUTO) 7.9 K/uL (4.8-10.8)
[2020-01-08 07:32] LABS: ALBUMIN 2.5 g/dL (3.4-5.0); ANION GAP 13.5 (8-16); CARBON DIOXIDE 28.6 mmol/L (21-32); TOTAL BILIRUBIN 0.4 mg/dL (0.0-1.0)
--- NOTE | 2020-01-08 07:34 | NUR ---
GIVEN MORPHINE FOR LEG PAIN 06/29. EXPLAINED TO PATIENT MED AND SIDE EFFECTS. PATIENT VERBALIZED UNDERSTANDING. BED IN LOW POSITION. CALL LIGHT IS WITHIN REACH. WILL CONTINUE TO MONITOR
[2020-01-08 07:58] LABS: POTASSIUM 6.1 mmol/L (3.5-5.1)
--- NOTE | 2020-01-08 07:58 | NUR ---
CRITICAL LAB: POTASSIUM 6.1, CREATININE 7.3. WILL REPORT VALUES TO DR. JONES
[2020-01-08 07:59] LABS: CREATININE 7.3 mg/dL (0.6-1.3)
[2020-01-08 08:00] VITALS: BP 172/79
--- NOTE | 2020-01-08 08:10 | NUR ---
REPORTED LAB VALUES TO DR. JONES. NO CHANGE IN ORDERS BECAUSE HE STATED PATIENT IS IN DIALYSIS
--- NOTE | 2020-01-08 08:24 | NUR ---
FNS CONSULT RECEIVED FOR WOUNDS/PRESSURE ULCERS AND CARDIAC DIET EDUCATION. PATIENT WILL BE ASSESSED WITHIN 1-2 DAYS OF RECEIVING CONSULTATION. [address]INTER [address]
[2020-01-08] MEDS: LORazepam 2 MG/ML VIAL IVP PRN (08:46)
--- NOTE | 2020-01-08 08:46 | NUR ---
GIVEN ATIVAN FOR ANXIETY. EXPLAINED TO PATIENT MED AND SIDE EFFECTS. PATIENT VERBALIZED UNDERSTANDING. BED IN LOW POSITION. CALL LIGHT IS WITHIN REACH. WILL CONTINUE TO MONITOR
--- NOTE | 2020-01-08 08:52 | NUR ---
PATIENT IS GETTING DIALYSIS AT THIS TIME.
[2020-01-08] MEDS: MINOXIDIL 2.5 MG TAB PO SCH ×2 (09:00→21:34)
[2020-01-08] MEDS: ATENOLOL 50 MG TAB PO SCH (09:00)
[2020-01-08] MEDS: cloNIDine 0.1 MG TAB PO SCH ×2 (09:00→21:33)
[2020-01-08] MEDS: PROPRANOLOL 20 MG TAB PO SCH ×2 (09:00→21:33)
[2020-01-08] MEDS: FUROSEMIDE 40 MG TAB PO SCH (09:00)
[2020-01-08] MEDS: LISINOPRIL 20 MG TAB PO SCH (09:00)
--- NOTE | 2020-01-08 09:00 | NUR ---
HELD BP MEDICATIONS BECAUSE PATIENT HAS SCHEDULED DIALYSIS
--- NOTE | 2020-01-08 09:39 | NUR ---
CRITICAL LAB VALUES: TROPONIN I 0.251. WILL REPORT TO DR. JONES
--- NOTE | 2020-01-08 09:45 | NUR ---
DR. JONES STATED NO CHANGE IN ORDER FOR CRITICAL LAB TROPONIN I 0.251
[2020-01-08] MEDS: MORPHINE SULFATE 2 MG/ML SYR IVP PRN ×2 (09:59→17:49)
--- NOTE | 2020-01-08 09:59 | NUR ---
GIVEN MORPHINE FOR LEG PAIN 04/29. EXPLAINED TO PATIENT MED AND SIDE EFFECTS. PATIENT VERBALIZED UNDERSTANDING. BED IN LOW POSITION. CALL LIGHT IS WITHIN REACH. WILL CONTINUE TO MONITOR
--- NOTE | 2020-01-08 10:56 | NUR ---
RIGHT PLANTAR WOUND ASSESSMENT DONE , PT. IS RECEIVING HD. PT. IS AAX4, STATE THAT HAS NEVER HAVE PODIATRY SERVICE. DIABETIC ULCER TO RIGHT PLANTAR 2ND, 3RD AND 4TH METATARSAL 3X2CM 1 CM TALL, HYPERKERATOTIC BORDER WITH FISSURES,MILD ODOR,AT THE BASE OF THE SCAB MOIST AND SEEPING OUT BROWN DRAINAGE. POC DISCUSSED WITH PT. AND PRIMARY RN. RECOMMENDATION: -PODIATRY CONSULT -CLEANSE RIGHT PLANTAR WOUND WITH NS. PAT DRY, APPLY SOAKED 4X4 BETADINE SOLUTION AND COVER WITH DRY DRESSING QD AND PRN IF SOILING
[2020-01-08] MEDS: ONDANSETRON 4 MG/2 ML VIAL IVP PRN ×2 (11:11→21:22)
--- NOTE | 2020-01-08 11:11 | NUR ---
PATIENT IS NAUSEOUS AND VOMITING. GIVEN ZOFRAN VIA IVP. EXPLAINED TO PATIENT MED AND SIDE EFFECTS. PATIENT VERBALIZED UNDERSTANDING. BED IN LOW POSITION. CALL LIGHT IS WITHIN REACH. WILL CONTINUE TO MONITOR. DIALYSIS IS STILL ONGOING
--- NOTE | 2020-01-08 11:30 | NUR ---
BLOOD GLUCOSE CHECK: 180. WILL GIVE INSULIN
[2020-01-08 12:00] VITALS: BP 119/67
--- NOTE | 2020-01-08 12:09 | NUR ---
GIVEN 2 UNITS OF INSULIN FOR BLOOD GLUCOSE 180 IN THE LEFT UA. EXPLAINED TO PATIENT MED AND SIDE EFFECTS. PATIENT VERBALIZED UNDERSTANDING. BED IN LOW POSITION. CALL LIGHT IS WITHIN REACH. WILL CONTINUE TO MONITOR
[2020-01-08] MEDS ORDERED: METOCLOPRAMIDE 10 MG/2 ML INJ VIAL IVP PRN ×2 (12:15→12:30)
--- NOTE | 2020-01-08 13:00 | NUR ---
CLEANED WOUND WITH NS. PAT DRY, PLACED BETADINE, COVERED WITH 4X4
[2020-01-08] MEDS: GAUZE TP SCH (13:16)
--- NOTE | 2020-01-08 13:24 | NUR ---
MADE AWARE TO DR. JONES REGARDING WOUND CARE NURSE'S RECOMMENDATION TO HAVE COUNSELOR MARRIAGE AND FAMILY CONSULT
--- NOTE | 2020-01-08 13:36 | NUR ---
PATIENT AND FAMILY REQUESTED DIABETIC AND RENAL DIET FOR PATIENT. PENDING DIET ORDER.
--- NOTE | 2020-01-08 13:43 | NUR ---
2 RD INITIAL ASSESSMENT COMPLETED PLEASE REFER TO NUTRITION ASSESSMENT UNDER CARE ACTIVITY FOR ESTIMATED NUTRITIONAL NEEDS. 1. RECOMMEND RENAL, DM, CARDIAC DIET TOLERATED 2. RECOMMEND BJ BID 3. RD TO FOLLOW-UP 2-3 DAYS, HIGH RISK WINTER JOYNER, RD
--- NOTE | 2020-01-08 15:03 | NUR ---
GIVEN MORPHINE FOR 8/10 LEG PAIN. EXPLAINED TO PATIENT MED AND SIDE EFFECTS. PATIENT VERBALIZED UNDERSTANDING. BED IN LOW POSITION. 7LN VILLASENOR TRACTION IS NOTED. FAMILY AT BEDSIDE. WILL CONTINUE TO MONITOR
[2020-01-08 16:00] VITALS: BP 118/46
--- NOTE | 2020-01-08 16:03 | NUR ---
PAIN REASSESSMENT. PATIENT STATED 2/10 LEG PAIN AND IT'S TOLERABLE.
--- NOTE | 2020-01-08 16:15 | NUR ---
PATIENT IS AWAKE. BUCKS TRACTION 7LBS IN PLACE. NO SIGNS OF DISTRESS NOTED. NO N/V. PAIN OF 3/10, TOLERABLE, LEG PAIN. FAMILY AT BEDSIDE. WILL CONTINUE TO MONITOR
--- NOTE | 2020-01-08 16:30 | NUR ---
VITAL SIGNS AND BLOOD GLUCOSE CHECK: 199. NO INSULIN COVERAGE.
--- NOTE | 2020-01-08 16:49 | NUR ---
REPOSITIONED PATIENT AND GIVEN SPONGE BATH WITH CHITO JAY
--- NOTE | 2020-01-08 17:49 | NUR ---
GIVEN MORPHINE VIA IVP FOR PAIN 04/29. EXPLAINED TO PATIENT MED AND SIDE EFFECTS. PATIENT VERBALIZED UNDERSTANDING. BED IN LOW POSTION. VILLASENOR TRACTION IN PLACE. CALL LIGHT IS WITHIN REACH. FAMILY AT BEDSIDE. WILL CONTINUE TO MONITOR
--- NOTE | 2020-01-08 18:41 | NUR ---
PATIENT IS AWAKE. DENIES ANY PAIN. BED IN LOW POSITION. TRACTION IN PLACE. BED IN LOW POSITION. CALL LIGHT IS WITHIN REACH. WILL CONTINUE TO MONITOR
--- NOTE | 2020-01-08 18:49 | NUR ---
REASSESSED FOR PAIN. 2/10 LEG PAIN. TOLERABLE PER PATIENT. BED IN LOW POSITION. CALL LIGHT IS WITHIN REACH. WILL CONTINUE TO MONITOR
--- NOTE | 2020-01-08 19:10 | NUR ---
RECEIVED REPORT FROM [facility] RN DAYSHIFT NURSE AT BEDSIDE FOR CONTINUITY OF CARE, PT IN STABLE CONDITION.
--- NOTE | 2020-01-08 19:11 | NUR ---
ENDORSED PATIENT TO THE SENIOR COBOL DEVELOPER NURSE FOR CONTINUITY OF CARE. PATIENT IS LAYING IN BED, NO SOB. C/O OF PAIN. PM NURSE AWARE. PATIENT IS IN STABLE CONDITION
[2020-01-08 20:00] VITALS: BP 165/63
--- NOTE | 2020-01-08 20:00 | NUR ---
ROUNDS MADE, PT IS LYING IN BED WITH N/C AT 2LITERS. PT RESPIRATIONS SLIGHTLY TACHY AT 24 RR , PT C/ OF SEVERE PAIN AND SOME NAUSEA, SHE IS ALSO REQUESTING SLEEPING PILL. PT HAS HD ELIE CATH INTACT AND ASYMPTOMATIC. SHE ALSO HAS A COLOSTOMY BAG EMPTIED INTACT AND ASYMPTOMATIC. PT HAS LEFT AC 18G SALINE LOCKED INTACT AND ASYMPTOMATIC. RIGHT LEG IN TRACTION WITH 7LBS. WILL FOLLOW UP WITH PRN REQUESTS AND SLEEPING PILL.
--- NOTE | 2020-01-08 21:15 | NUR ---
PT GIVEN ORDERED MEDS OF CATAPRES, INDERAL AND MINOXIDIL, EDUCATION REGARDING MEDICATION PROVIDED AT BEDSIDE INCLUDING SIDE EFFECTS. PT GIVEN REQUESTED PRN MEDICATION ZOFRAN FOR NAUSEA AND MORPHINE FOR SEVERE PAIN. PT FINGERSTICK IS 255, SHE WAS GIVEN 6 UNITS HUMALOG COVERAGE PER S/S. ALL FALLS PRECAUTIONS IN PLACE.
--- NOTE | 2020-01-08 22:30 | NUR ---
PT IN BED SLEEPING NO S/S OF PAIN OR DISTRESS NOTED ALL FALLS PROTOCOL IN PLACE.
[2020-01-09] VITALS: BP 113/52
--- NOTE | 2020-01-09 | NUR ---
PT IN BED RESTING BUT AROUSABLE TO NAME, V/S FOLLOWS: T 97.1 P 78 R 18 B/P 113/52 02 94% ALL FALLS PRECAUTIONS IN PLACE.
[2020-01-09 04:00] VITALS: BP 123/45
--- NOTE | 2020-01-09 04:00 | NUR ---
PT IN BED N/C IN PLACE RUNNING AT 2 LITERS WOUND CARE PROVIDED TO RIGHT PLANTAR FOOT ORDERED. PT HAS DECLINED TO TURN THIS SHIFT. V/S FOLLOWS: T 97.7 P 78 R 18 B/P 123/45 02 97% WITH 2 LITERS VIA N/C. ALL REQUESTED NEDS ATTENDED AND ALL FALLS PRECAUTIONS IN PLACE.
[2020-01-09] MEDS: INSULIN LISPRO SLIDING SCALE 100 UNITS/ML VIAL SUBQ PRN ×4 (05:46→20:32)
[2020-01-09] MEDS: BLOOD GLUCOSE MONITORING 1 DEV DEV FS SCH ×4 (05:48→20:31)
[2020-01-09] MEDS: MORPHINE SULFATE 4 MG/ML SYR IVP PRN ×2 (06:06→11:51)
--- NOTE | 2020-01-09 06:35 | NUR ---
PT IN BED FINGERSTICK IS 195 PT GIVEN 2 UNITS OF HUMALOG COVERAGE. MD SALAZAR ALSO SAID THAT PT TRACTION IS ON WRONG LEG AND THAT PT MAY RECEIVE SURGERY PENDING AM LABS AND TO BE NPO POST MIDNIGHT TONIGHT. WILL ENDORSE TO AM SHIFT.
[2020-01-09 06:55] LABS: BASOPHILS # (AUTO) 0.1 K/uL (0.00-0.22); BASOPHILS % (AUTO) 0.8 % (0.0-2.0); EOSINOPHILS # (AUTO) 0.2 K/uL (0-0.4); EOSINOPHILS % (AUTO) 2.1 % (0.0-4.0); HEMATOCRIT 29.2 % (36-48); HEMOGLOBIN 9.6 g/dL (12.0-16.0); LYMPHOCYTES # (AUTO) 0.8 K/uL (2.5-16.5); LYMPHOCYTES % (AUTO) 10.5 % (20.5-51.1); MEAN CORPUSCULAR HEMOGLOBIN 28 pg (27-31); MEAN CORPUSCULAR HGB CONC 33 g/dL (33-37); MEAN CORPUSCULAR VOLUME 83.6 fL (80-94); MONOCYTES # (AUTO) 0.8 K/uL (0.8-1.0); MONOCYTES % (AUTO) 10.8 % (1.7-9.3); NEUTROPHILS # (AUTO) 5.6 K/uL (1.8-7.7); NEUTROPHILS % (AUTO) 75.8 % (42.2-75.2); PLATELET COUNT (AUTO) 212 K/uL (140-450); RED BLOOD CELL COUNT(AUTO) 3.49 MIL/uL (4.20-5.40); RED CELL DISTRIBUTION WIDTH 17.7 % (11.6-13.7); WHITE BLOOD COUNT (AUTO) 7.4 K/uL (4.8-10.8)
--- NOTE | 2020-01-09 07:21 | NUR ---
RECEIVED PATIENT FROM WIRE WALKER NURSE FOR CONTINUITY OF CARE. PATIENT IS AAOX4. RESPIRATIONS EVEN AND UNLABORED, ON 2L O2 VIA NC. VISIBLE CHEST RISE NOTED. ON TELE MONITORING. ABDOMEN SOFT, ROUND, NONTENDER. SKIN WARM AND DRY. PRESSURE ULCER IN THE RIGHT PLANTAR ASPECT, DRESSING INTACT, NO DRAINAGE. PATIENT HAS A FEMORAL FRACTURE IN THE LEFT HIP. TRAPEZE IN THE BED NOTED, VILLASENOR TRACTION 7LB NOTED. DIALYSIS ACCESS IN THE RIGHT CHEST. PATIENT IS BEDBOUND. STANDARD ISOLATION. BED IN LOW POSITION. CALL LIGHT IS WITHIN REACH. WILL CONTINUE TO MONITOR
[2020-01-09 07:30] LABS: ALBUMIN 2.5 g/dL (3.4-5.0); ANION GAP 14.2 (8-16); CARBON DIOXIDE 30.1 mmol/L (21-32); POTASSIUM 4.3 mmol/L (3.5-5.1); TOTAL BILIRUBIN 0.6 mg/dL (0.0-1.0)
--- NOTE | 2020-01-09 07:40 | NUR ---
RECEIVED A CALL FROM LAB FOR CRITICAL VALUES: CREATININE 5.9, BUN: 39. WILL NOTIFY DR. JONES
[2020-01-09 07:41] LABS: CREATININE 5.9 mg/dL (0.6-1.3)
[2020-01-09 08:00] VITALS: BP 120/62
--- NOTE | 2020-01-09 08:00 | NUR ---
CALLED [facility] FOR A DIFFERENT BREAKFAST. PATIENT DIDN'T LIKE THE BREAKFAST. PATIENT REQUESTED HOT TEA AND CEREALS
[2020-01-09] MEDS: FUROSEMIDE 40 MG TAB PO SCH (09:13)
[2020-01-09] MEDS: MINOXIDIL 2.5 MG TAB PO SCH ×2 (09:14→20:39)
[2020-01-09] MEDS: LISINOPRIL 20 MG TAB PO SCH (09:14)
[2020-01-09] MEDS: ATENOLOL 50 MG TAB PO SCH (09:14)
[2020-01-09] MEDS: cloNIDine 0.1 MG TAB PO SCH ×2 (09:17→20:37)
[2020-01-09] MEDS: PROPRANOLOL 20 MG TAB PO SCH ×2 (09:17→20:38)
[2020-01-09] MEDS: MORPHINE SULFATE 2 MG/ML SYR IVP PRN (09:19)
--- NOTE | 2020-01-09 09:22 | NUR ---
GIVEN MORNING MEDICATIONS SCHEDULED. GIVEN MORPHINE FOR LEFT LEG PAIN 04/29. EXPLAINED SIDE EFFECTS AND PURPOSES. PATIENT VERBALIZED UNDERSTANDING. BED IN LOW POSITION. CALL LIGHT IS WITHIN REACH. WILL CONTINUE TO MONITOR
--- NOTE | 2020-01-09 10:46 | NUR ---
PAGED DR. SALAZAR REGARDING PATIENT'S DIET. WILL WAIT FOR CALL BACK
--- NOTE | 2020-01-09 11:00 | NUR ---
INFORMED DR. JONES REGARDING PATIENT'S DIET. HE MADE A VERBAL ORDER FOR NS AT 40 ML/HR AND DIET CHANGED TO RENAL AND DIABETIC FOR LUNCH AND DINNER. PATIENT WILL BE NPO AFTER MIDNIGHT FOR SCHEDULED SURGERY TOMORROW.
[2020-01-09] MEDS: ONDANSETRON 4 MG/2 ML VIAL IVP PRN ×2 (11:04→17:52)
--- NOTE | 2020-01-09 11:05 | NUR ---
C/O N/V. GIVEN ZOFRAN VIA IVP. EXPLAINED TO PATIENT MEDS AND SIDE EFFECTS. PATIENT VERBALIZED UNDERSTANDING. WILL CONTINUE TO MONITOR
--- NOTE | 2020-01-09 11:06 | NUR ---
GIVEN ICE CHIPS REQUESTED
[2020-01-09] MEDS: NACL 0.9% 1,000 ML IV SCH (11:47)
--- NOTE | 2020-01-09 11:47 | NUR ---
HANG NEW IV BAG OF NS AT RATE OF 40 ML/HR PER MD ORDER. BLOOD GLUCOSE CHECK: 233. WILL GIVE INSULIN
--- NOTE | 2020-01-09 11:51 | NUR ---
GIVEN MORPHINE FOR 9/10 LEG PAIN. EXPLAINED TO PATIENT MEDS AND SIDE EFFECTS. PATIENT VERBALIZED UNDERSTANDING. WILLC CONTINUE TO MONITOR
--- NOTE | 2020-01-09 11:54 | NUR ---
GIVEN INSULIN 4 UNITS FOR GLUCOSE 233 IN RIGHT UPPER ARM SUBQ. EXPLAINED TO PATIENT MED AND SIDE EFFECTS.BED IN LOW POSITION. CALL LIGHT IS WITHIN REACH. WILL CONTINUE TO MONITOR
[2020-01-09 12:00] VITALS: BP 155/67
--- NOTE | 2020-01-09 12:30 | NUR ---
PATIENT REFUSED TO BE REPOSITIONED AND LINENS TO BE CHANGED.
--- NOTE | 2020-01-09 12:58 | NUR ---
PATIENT'S SIGNED CONSENT FOR TOMORROW'S SURGERY OPEN TREATMENT FOR LEFT HIP FRACTURE.
[2020-01-09] MEDS: GAUZE TP SCH (13:02)
--- NOTE | 2020-01-09 13:02 | NUR ---
CLEANED RIGHT PLANTER WOUND WITH NS, PAT DRIED, APPLIED BETADINE, AND COVERED WITH STRATASORB. PATIENT TOLERATED WELL
--- NOTE | 2020-01-09 13:31 | NUR ---
CHANGED FLUID RATE TO 10 ML/HR FROM 40 ML/HR PER MD ORDER.
--- NOTE | 2020-01-09 13:32 | NUR ---
PATIENT IS SLEEPING AT THIS TIME. NO SIGNS OF DISTRESS NOTED. BED IN LOW POSITION. CALL LIGHT IS WITHIN REACH. WILL CONTINUE TO MONITOR
--- NOTE | 2020-01-09 13:39 | NUR ---
NPO AFTER MIDNIGHT SIGNAGE IS POSTED BY THE PATIENT'S DOOR.
--- NOTE | 2020-01-09 15:39 | NUR ---
PAGED DR. MEJIA REGARDING PATIENT'S SCHEDULED DIALYSIS CONFLICT WITH THE PATIENT'S SURGERY AT 7:30AM
--- NOTE | 2020-01-09 15:51 | NUR ---
PATIENT C/O OF NAUSEA AND VOMITING. GIVEN REGLAN ORDERED. EXPLAINED TO PATIENT MEDICATION AND SIDE EFFECTS. PATIENT VERBALIZED UNDERSTANDING. FAMILY AT BEDSIDE. WILL CONTINUE TO MONITOR
[2020-01-09 16:00] VITALS: BP 152/67
--- NOTE | 2020-01-09 16:30 | NUR ---
BLOOD GLUCOSE CHECK: 277. WILL GIVE INSULIN COVERAGE.
--- NOTE | 2020-01-09 17:06 | NUR ---
PAGED DR. MEJIA AGAIN. WILL WAIT FOR CALL BACK
--- NOTE | 2020-01-09 17:11 | NUR ---
FAMILY AT BEDSIDE
--- NOTE | 2020-01-09 17:18 | NUR ---
DR. KAREEM LOWERY CALLED. HE STATED GET DIALYSIS TOMORROW AFTER PATIENT'S SURGERY. WILL NOTIFY Eric.Elizabeth [facility] PALOMO HINES. CHARGE NURSE IS AWARE
--- NOTE | 2020-01-09 17:19 | NUR ---
PALOMO HINES FROM [facility] IS AWARE THAT THE PATIENT IS HAVING SURGERY TOMORROW AND TO SCHEDULE DIALYSIS AFTER SURGERY. SHE VERBALIZED UNDERSTANDING.
--- NOTE | 2020-01-09 17:33 | NUR ---
GIVEN 6 UNITS OF INSULIN FOR BLOOD SUGAR 277. GIVEN IT IN THE LEFT UPPER ARM. EXPLAINED TO PATIENT AND FAMILY MED AND SIDE EFFECTS. THEY VERBALIZED UNDERSTANDING. WILL CONTINUE TO MONITOR. FAMILY AT BED SIDE
--- NOTE | 2020-01-09 17:52 | NUR ---
GIVEN ZOFRAN VIA IVP FOR C/O OF NAUSEA AND VOMITING. EXPLAINED TO PATIENT MED AND SIDE EFFECTS. PATIENT VERBALIZED UNDERSTANDING. BED IN LOW POSITION. CALL LIGHT IS WITHIN REACH. WILL CONTINUE TO MONITOR
--- NOTE | 2020-01-09 18:24 | NUR ---
MADE ROUNDS. PATIENT IS AWAKE, TALKING TO FAMILY MEMBERS. PATIENT DENIES PAIN AND NAUSEA AND VOMITING. BED IN LOW POSITION. CALL LIGHT IS WITHIN REACH. WILL CONTINUE TO MONITOR
--- NOTE | 2020-01-09 18:53 | NUR ---
CHANGED COLOSTOMY BAG. THERE'S A BM OF BROWN SOFT STOOL, FOUL ODOR.
--- NOTE | 2020-01-09 19:25 | NUR ---
ENDORSED PATIENT TO THE EPIC AMBULATORY ANALYST NURSE FOR CONTINUITY OF CARE. PATIENT IS AWAKE, NO SOB. NO PAIN. PATIENT IS IN STABLE CONDITION
--- NOTE | 2020-01-09 19:27 | NUR ---
PT HAS RT UPPER CHEST TUNNELED DIALYSIS CATHETER
--- NOTE | 2020-01-09 19:27 | NUR ---
RECEIVED PT FROM RN PT IS AAOX4 ON BED REST LEFT LOWER EXTREMITY ON VILLASENOR TRACTION 7 POUNDS, IV TKO ON LEFT AC , PT ON TELEMETRY SR NOT DISTRESS NOTED REATIVES AT BED SIDE INITIAL ASSESSMENT DONE
[2020-01-09 20:00] VITALS: BP 116/44
--- NOTE | 2020-01-09 21:30 | NUR ---
BLOOD SUGAR TEST 194 COVERAGE WITH HUMALOG SUBQ FOLLOW PROTOCOL PT GETTING SLEEP NOT DISTRESS NOTED
[2020-01-10] VITALS (7 sets, daily range): BP systolic 90–142; BP diastolic 33–74
--- NOTE | 2020-01-10 | NUR ---
PT NPO POST MN GOING TO SURGERY FOR LEFT HIP FRACTURE REMAINSTABLE AT THIS TIME ON TELMETRY SR
--- NOTE | 2020-01-10 03:00 | NUR ---
PT SLEEPING WELL NOT DISTRESS NOTED MACDONALD CATH DRAINING WELL YELLOW URINE ON TELE SR
[2020-01-10 04:09] LABS: BASOPHILS # (AUTO) 0.1 K/uL (0.00-0.22); BASOPHILS % (AUTO) 0.9 % (0.0-2.0); EOSINOPHILS # (AUTO) 0.3 K/uL (0-0.4); EOSINOPHILS % (AUTO) 3.3 % (0.0-4.0); HEMATOCRIT 27.9 % (36-48); HEMOGLOBIN 9.2 g/dL (12.0-16.0); LYMPHOCYTES # (AUTO) 0.9 K/uL (2.5-16.5); LYMPHOCYTES % (AUTO) 11.9 % (20.5-51.1); MEAN CORPUSCULAR HEMOGLOBIN 28 pg (27-31); MEAN CORPUSCULAR HGB CONC 33 g/dL (33-37); MEAN CORPUSCULAR VOLUME 83.1 fL (80-94); MONOCYTES # (AUTO) 0.9 K/uL (0.8-1.0); MONOCYTES % (AUTO) 11.3 % (1.7-9.3); NEUTROPHILS # (AUTO) 5.7 K/uL (1.8-7.7); NEUTROPHILS % (AUTO) 72.6 % (42.2-75.2); PLATELET COUNT (AUTO) 219 K/uL (140-450); RED BLOOD CELL COUNT(AUTO) 3.35 MIL/uL (4.20-5.40); RED CELL DISTRIBUTION WIDTH 17.1 % (11.6-13.7); WHITE BLOOD COUNT (AUTO) 7.9 K/uL (4.8-10.8)
[2020-01-10 04:26] LABS: PROTHROMBIN TIME 11.2 secs (10.8-13.4)
[2020-01-10 04:28] LABS: ALBUMIN 2.4 g/dL (3.4-5.0); ANION GAP 13.4 (8-16); CARBON DIOXIDE 29.5 mmol/L (21-32); POTASSIUM 4.9 mmol/L (3.5-5.1); TOTAL BILIRUBIN 0.4 mg/dL (0.0-1.0)
[2020-01-10 04:38] LABS: CREATININE 7.4 mg/dL (0.6-1.3)
--- NOTE | 2020-01-10 05:00 | NUR ---
SPONGE BATH PRE-OP GIVEN ORDER PT COOPERATIVE , LEFT LOWER LEG ON VILLASENOR TRACTION 7 POUNDS
--- NOTE | 2020-01-10 05:33 | NUR ---
SURGICAL CHECK LIST, CONSENT FOR SURGERY AND TICKET TO RIDE ARE READY , PT ON TELE SR
[2020-01-10] MEDS: BLOOD GLUCOSE MONITORING 1 DEV DEV FS SCH ×4 (06:26→20:10)
--- NOTE | 2020-01-10 06:27 | NUR ---
PT RESTING ON BED WAITING TOR OR NURSES TO PICK HER UP FOR SURGERY, PT WILL BE ENDRSED TO DAY SHIFT NURSE FOR CONTINUE OF CARE
--- NOTE | 2020-01-10 07:22 | NUR ---
RECEIVED REPORT FROM SOLID WASTE TRUCK DRIVER NURSE. PT WAS TAKEN TO OR FOR PROCEDURE AT THE TIME OF REPORTING.
[2020-01-10] MEDS ORDERED: DESFLURANE 240 ML BTL INH ONE (07:30)
[2020-01-10] MEDS ORDERED: hydrALAZINE 20 MG/ML VIAL ONE (07:30)
[2020-01-10] MEDS ORDERED: fentaNYL 0.05 MG/ML VIAL ONE (07:30)
[2020-01-10] MEDS ORDERED: PROPOFOL 200 MG/20 ML VIAL IV ONE (07:30)
[2020-01-10] MEDS ORDERED: ONDANSETRON 4 MG/2 ML VIAL ONE (07:30)
[2020-01-10] MEDS ORDERED: BACITRACIN 50000 UNITS/1 VIAL ONE (07:36)
[2020-01-10] MEDS ORDERED: BUPIVACAINE-MPF 0.5% 30 ML VIAL INJ ONE (08:59)
[2020-01-10] MEDS: ATENOLOL 50 MG TAB PO SCH (09:00)
[2020-01-10] MEDS: MINOXIDIL 2.5 MG TAB PO SCH ×2 (09:00→21:00)
[2020-01-10] MEDS: cloNIDine 0.1 MG TAB PO SCH ×2 (09:00→21:00)
[2020-01-10] MEDS: PROPRANOLOL 20 MG TAB PO SCH ×2 (09:00→21:00)
[2020-01-10] MEDS: LISINOPRIL 20 MG TAB PO SCH (09:00)
[2020-01-10] MEDS: FUROSEMIDE 40 MG TAB PO SCH (09:00)
[2020-01-10] MEDS ORDERED: ONDANSETRON 4 MG/2 ML VIAL IVP PRN (09:20)
[2020-01-10] MEDS ORDERED: HYDROmorphone PFS 2 MG/ML SYR ONE (09:25)
[2020-01-10] MEDS ORDERED: LABETALOL 100 MG/20 ML VIAL ONE (09:29)
[2020-01-10] MEDS: HYDROmorphone 1 MG/ML AMP IVP PRN ×2 (09:35→09:45)
[2020-01-10] MEDS ORDERED: LABETALOL 100 MG/20 ML VIAL IV PRN (09:40)
--- NOTE | 2020-01-10 10:00 | NUR ---
PT CAME TO THE UNIT. REPORT GIVEN BY OLGA BERGERON. VITAL SIGNS TAKEN. PT IS AWAKE AND RESPONDING. FAMILY BY BEDSIDE. NO COMPLAINS OF PAIN. TELEMONITOR ON PATIENT. ABDUCTION DEVICE IN BETWEEN LEGS. MACDONALD CATHETER IN PLACE AND NOTED WITH 200 ML URINE OUTPUT. COLOSTOMY IN PLACE. WILL CONTINUE TO MONITOR.
[2020-01-10] MEDS: ONDANSETRON 4 MG/2 ML VIAL IVP PRN (10:36)
[2020-01-10] MEDS: NACL 0.9% 1,000 ML IV SCH (11:25)
[2020-01-10] MEDS: INSULIN LISPRO SLIDING SCALE 100 UNITS/ML VIAL SUBQ PRN ×3 (11:41→20:15)
--- NOTE | 2020-01-10 12:25 | NUR ---
01/10/20 RD FOLLOW UP COMPLETED PLEASE REFER TO NUTRITION ASSESSMENT UNDER CARE ACTIVITY FOR ESTIMATED NUTRITIONAL NEEDS. 1. RECOMMEND RENAL AND CCHO 60GM DIET WITH BJ BID TOLERATED 2. ENCOURAGE INCREASING PO INTAKE 3. IF PO INTAKE IS <75% RECOMMEND NEPRO NUTRITION SUPPLEMENT SHAKE TID 4. RD TO FOLLOW-UP 2-3 DAYS, HIGH RISK WINTER JOYNER, RD
--- NOTE | 2020-01-10 12:30 | NUR ---
PT WAS STARTED ON DIALYSIS. VITAL SIGNS WERE WITHIN NORMAL LEVELS AT THIS TIME. FAMILY BY BEDSIDE. DIALYSIS NURSE BY BEDSIDE. PT IS AWAKE AND RESPONSIVE. PT SAYS SHE IS FEELING NAUSEAS. WILL CONTINUE TO MONITOR. CALL LIGHT IN REACH.
[2020-01-10] MEDS: GAUZE TP SCH (13:00)
--- NOTE | 2020-01-10 15:28 | NUR ---
P.T. NOTES P.T. EVAL RECEIVED, Pt HAS SURGERY THIS AM, ON DIALYSIS THIS AFTERNN, HOLD P.T. EVAL TODAY, RN AWARE, RN REPORTS Pt HAS BEEN NAUSEOUS; ALL LINES INTACT, BED ALARM ON, CALL DÍAZ, PHONE, TABLE IN REACH; XH=721/52, HR=86, O2 SAT 6I=891%.
--- NOTE | 2020-01-10 15:33 | NUR ---
DIALYSIS COMPLETE PER DIALYSIS NURSE 2 LITERS OF FLUID WAS REMOVED. PT IS ALERT AND RESPONDING. FAMILY BY BEDSIDE. WILL CONTINUE TO MONITOR. CALL LIGHT IN REACH.
--- NOTE | 2020-01-10 18:00 | NUR ---
PT IS RESTING IN BED. PT ALERT AND RESPONSIVE. NO DISTRESS NOTED. NO COMPLAINS OF PAIN. FAMILY BE BEDSIDE. CALL LIGHT IN REACH.
[2020-01-10] MEDS: MORPHINE SULFATE 2 MG/ML SYR IVP PRN (18:53)
--- NOTE | 2020-01-10 19:16 | NUR ---
SHIFT REPORT GIVEN TO TRACTOR TECHNICIAN NURSE. PT IS IN STABLE CONDITION. FAMILY BY BEDSIDE. CALL LIGHT IN REACH.
[2020-01-10] MEDS: LORazepam 2 MG/ML VIAL IVP PRN (19:57)
--- NOTE | 2020-01-10 19:58 | NUR ---
SON REQUESTED FOR ATIVAN IVP RT CONFUSED AND RESTLESS. SON AT BEDSIDE WATCHING OVER PT.
--- NOTE | 2020-01-10 21:32 | NUR ---
HTN MEDICATIONS HELD AT THIS TIME RT BP IN THE LOW SIDE 90/33 WITH HR OF 82. PT. TURNED SLIGHTLY TO RIGHT SIDE LOG ROLLED BY CNAS AND ME. PILLOW SUPPORT TO PRESSURE AREAS. AWAKE WHEN TURNED AND WENT BACK TO SLEEP ENCOURAGED BY ME. "OK" NEEDS WILL BE ANTICIPATED AND WILL BE MET. WEDGE IN BETWEEN LEGS IN PLACE . MACDONALD CATHETER IN PLACE AND DRAINING WELL WITH YELLOW URINE. NO PAIN COMPLAINTS DONE AT THIS TIME. NO RESTLESSNESS NOTED. TELEMETRY MONITORING. CALL LIGHT BESIDE HER FOR EASY ACCESS AND ENCOURGED TO CALL FOR ANY HELP SHE MAY NEED OR IF IN PAIN. "OK"
--- NOTE | 2020-01-10 23:33 | NUR ---
ASLEEP . WAKES UP EASILY WHEN TOUCHED. ABLE TO UNDERSTAND BELARUSIAN WELL. TELEMETRY MONITORING.
[2020-01-11] VITALS: BP 137/48
[2020-01-11] MEDS: ONDANSETRON 4 MG/2 ML VIAL IVP PRN ×3 (01:27→19:01)
[2020-01-11] MEDS: MORPHINE SULFATE 4 MG/ML SYR IVP PRN ×3 (01:27→16:30)
--- NOTE | 2020-01-11 01:42 | NUR ---
P. AWAKE AND STATED SHE WANTS PAIN MEDICINE AND WAS TRYING TO VOMIT. MEDICATED WITH MORPHINE FOR PAIN RT NOTED RESTLESS. ALSO MEDICATED WITH ZOFRAN IVP FOR NAUSEA. ENCOURAGED TO SLEEP BACK AND RELAX. "OK" TELEMETRY MONITORING.
--- NOTE | 2020-01-11 03:40 | NUR ---
PT. AWAKE AT THIS TIME RT AM PERSONAL HYGIENE RENDERED BY CNAS. KEPT CLEAN,DRY AND COMFORTABLE. WEDGE IN BETWEEN LEGS IN PLACE. IVF SITE INTACT AND NO INFILTRATION NOTED. ABLE TO VERBALIZE SIMPLE NEEDS. ENCOURAGED TO GO BACK TO SLEEP. "OK"
[2020-01-11 04:00] VITALS: BP 130/55
[2020-01-11] MEDS: BLOOD GLUCOSE MONITORING 1 DEV DEV FS SCH ×4 (05:05→20:52)
[2020-01-11] MEDS: INSULIN LISPRO SLIDING SCALE 100 UNITS/ML VIAL SUBQ PRN ×4 (05:07→20:52)
--- NOTE | 2020-01-11 05:20 | NUR ---
BLOOD SUGAR CHECK PER FINGERSTICK DONE. 190 MG/DL AND COVERED WITH 2 UNITS OF HUMALOG INSULIN. TOLERATED WELL. ENCOURAGED TO GO BACK TO SLEEP. "OK" ABLE TO VERBALIZE SIMPLE NEEDS.
[2020-01-11 06:52] LABS: BASOPHILS # (AUTO) 0.1 K/uL (0.00-0.22); BASOPHILS % (AUTO) 0.8 % (0.0-2.0); EOSINOPHILS % (AUTO) 0.2 % (0.0-4.0); HEMATOCRIT 27.7 % (36-48); HEMOGLOBIN 9.1 g/dL (12.0-16.0); LYMPHOCYTES # (AUTO) 0.7 K/uL (2.5-16.5); LYMPHOCYTES % (AUTO) 8.2 % (20.5-51.1); MEAN CORPUSCULAR HEMOGLOBIN 28 pg (27-31); MEAN CORPUSCULAR HGB CONC 33 g/dL (33-37); MEAN CORPUSCULAR VOLUME 83.9 fL (80-94); MONOCYTES # (AUTO) 0.8 K/uL (0.8-1.0); MONOCYTES % (AUTO) 10.1 % (1.7-9.3); NEUTROPHILS # (AUTO) 6.6 K/uL (1.8-7.7); NEUTROPHILS % (AUTO) 80.7 % (42.2-75.2); PLATELET COUNT (AUTO) 234 K/uL (140-450); RED CELL DISTRIBUTION WIDTH 17.5 % (11.6-13.7); WHITE BLOOD COUNT (AUTO) 8.1 K/uL (4.8-10.8)
[2020-01-11 07:10] LABS: ALBUMIN 2.4 g/dL (3.4-5.0); ANION GAP 16.2 (8-16); CARBON DIOXIDE 27.2 mmol/L (21-32); POTASSIUM 4.4 mmol/L (3.5-5.1); TOTAL BILIRUBIN 0.4 mg/dL (0.0-1.0)
[2020-01-11 07:19] LABS: CREATININE 6.2 mg/dL (0.6-1.3)
--- NOTE | 2020-01-11 07:19 | NUR ---
RECEIVED REPORT FROM NIGHT NURSE, PT IS AA0X3, PHYSICAL THERAPIST WORKING WITH PT, PT STABLE IN BED, NO SIGNS OF DISTRESS NOTED, SAFETY MEASURES IN PLACE, UPDATE WHITE BOARD, BED ALARM ON, WILL CONTINUE TO MONITOR, CALL LIGHT WITHIN REACH.
--- NOTE | 2020-01-11 07:20 | NUR ---
PHYSICAL THERAPIST IN HERE. AWAKE AND ALERT.
[2020-01-11 08:00] VITALS: BP 146/57
--- NOTE | 2020-01-11 08:30 | NUR ---
GAVE PT ZOFRAN FOR NAUSEA, PT EDUCATION GIVEN, PT TOLERATED WELL, PT STABLE, WILL CONTINUE TO MONITOR, CALL LIGHT WITHIN REACH.
[2020-01-11] MEDS: PROPRANOLOL 20 MG TAB PO SCH ×2 (09:06→20:33)
[2020-01-11] MEDS: FUROSEMIDE 40 MG TAB PO SCH (09:06)
[2020-01-11] MEDS: ATENOLOL 50 MG TAB PO SCH (09:06)
[2020-01-11] MEDS: cloNIDine 0.1 MG TAB PO SCH ×2 (09:07→20:32)
[2020-01-11] MEDS: LISINOPRIL 20 MG TAB PO SCH (09:07)
[2020-01-11] MEDS: MINOXIDIL 2.5 MG TAB PO SCH ×2 (09:07→20:33)
--- NOTE | 2020-01-11 09:08 | NUR ---
GAVE PT MORPHINE FOR SEVERE PAIN OF 9/10 FROM HIP SURGERY, PT STATES IT HURTS REALLY BAD, EDUCATION GIVEN, PT VERBALIZED UNDERSTANDING, PT TOLERATED WELL, WILL CONTINUE TO MONITOR, CALL LIGHT WITHIN REACH.
--- NOTE | 2020-01-11 11:00 | NUR ---
PT STABLE, NO SIGNS OF DISTRESS NOTED, CALL LIGHT WITHIN REACH.
[2020-01-11] MEDS: NACL 0.9% 1,000 ML IV SCH (11:25)
[2020-01-11 12:00] VITALS: BP 131/47
[2020-01-11] MEDS: GAUZE TP SCH (13:59)
[2020-01-11 16:00] VITALS: BP 124/45
--- NOTE | 2020-01-11 16:30 | NUR ---
GAVE PT MORPHINE FOR PAIN OF 10/10, S/P HIP SURGERY, PT EDUCATION GIVEN, PT VERBALIZED UNDERSTANDING, PT STABLE, CALL LIGHT WITHIN REACH.
--- NOTE | 2020-01-11 19:00 | NUR ---
GAVE PT ZOFRAN FOR NAUSEA, EDUCATION GIVEN, PT VERBALIZED UNDERSTANDING, PT TOLERATED WELL, PT STABLE, CALL LIGHT WITHIN REACH.
--- NOTE | 2020-01-11 19:10 | NUR ---
PT STABLE, GAVE REPORT TO NIGHT NURSE FOR CONTINUITY OF CARE
--- NOTE | 2020-01-11 19:20 | NUR ---
RECEIVED FROM AM RN IN BED AWAKE AND WITH CONFUSION. TALKING ABOUT DIFFERENT THINGS NOT CONNECTING. NEEDS WILL BE ANTICIPATED AND WILL BE MET. TOTAL CARE AT THIS TIME. HOB UP 30 DEGREES ORDERED BY MD SALAZAR AND WEDGE IN BETWEEN LEGS IN PLACE. TELEMETRY MONITORING. IVF SITE TO LAC IN PLACE AND NO INFILTRATION NOTED.
[2020-01-11 20:29] VITALS: BP 97/40
--- NOTE | 2020-01-11 22:59 | NUR ---
SLEEPING AT THIS TIME. NEEDS WILL BE ANTICIPATED AND MET. PT. TOTAL CARE AT THIS TIME. TURNED BY CNAS BY LOG ROLLING.
[2020-01-12] VITALS: BP 107/74
--- NOTE | 2020-01-12 00:15 | NUR ---
PT. TURNED BY CNAS. LOG ROLLED. NEEDS ANTICIPATED AND MET. NSR IN TELEMETRY MONITORING. ENCOURAGED TO GO BACK TO SLEEP. KEPT CLEAN ,DRY AND COMFORTABLE. AFEBRILE.
--- NOTE | 2020-01-12 02:00 | NUR ---
PT. AWAKE AND TURNED BY CNAS AND ME. PILLOW SUPPORT TO PRESSURE AREAS. NEEDS ANTICIPATED AND MET.
[2020-01-12 04:00] VITALS: BP 106/70
[2020-01-12] MEDS: BLOOD GLUCOSE MONITORING 1 DEV DEV FS SCH ×4 (05:13→21:00)
--- NOTE | 2020-01-12 05:13 | NUR ---
BLOOD SUGAR CHECK PER FINGERSTICK IS 145 MG/DL. NO HUMALOG INSULIN COVERAGE. PT. TURNED TO SIDES Q2H BY LOG ROLLING TO SIDE NOT FRACTURED. HOB UP AT LEAST 30 DEGREES FOR POSITIONING PER ORTHO SURGEON ORDER. URINARY CATHETER CARE DONE. NO SOB.
--- NOTE | 2020-01-12 06:58 | NUR ---
SLEEPING AT THIS TIME. NEEDS ANTICIPATED A ND MET. WILL ENDORSE TO AM RN FOR CONTINUITY OF CARE.
--- NOTE | 2020-01-12 07:05 | NUR ---
RECEIVED BEDSIDE REPORT FROM NIGHT NURSE, PT ASLEEP, IV RUNNING NS AT 10ML, COLOSTOMY INTACT, HIP ABDUCTOR IN PLACE, PT ON 2L NC OXYGEN, PT STABLE, NO SIGNS OF DISTRESS NOTED, CALL LIGHT WITHIN REACH, ALL NEEDS MET, UPDATE WHITE BOARD, WILL CONTINUE TO MONITOR.
[2020-01-12 08:00] VITALS: BP 145/58
[2020-01-12] MEDS: PROPRANOLOL 20 MG TAB PO SCH ×2 (09:40→21:00)
[2020-01-12] MEDS: ATENOLOL 50 MG TAB PO SCH (09:40)
[2020-01-12] MEDS: cloNIDine 0.1 MG TAB PO SCH ×2 (09:41→21:00)
[2020-01-12] MEDS: MINOXIDIL 2.5 MG TAB PO SCH ×2 (09:42→21:00)
[2020-01-12] MEDS: LISINOPRIL 20 MG TAB PO SCH (09:42)
[2020-01-12] MEDS: LORazepam 2 MG/ML VIAL IVP PRN (09:43)
[2020-01-12] MEDS: FUROSEMIDE 40 MG TAB PO SCH (09:43)
--- NOTE | 2020-01-12 09:50 | NUR ---
GAVE ANXIETY MEDICATION PT STATES SHE IS FEELING ANXIOUS AND DENIES ANY PAIN.
[2020-01-12] MEDS: NACL 0.9% 1,000 ML IV SCH (10:08)
--- NOTE | 2020-01-12 11:20 | NUR ---
PT ASLEEP IN BED, AT BEDSIDE, PT IS STABLE, NO SIGNS OF DISTRESS NOTED, CALL LIGHT WITHIN REACH. WILL CONTINUE TO MONITOR.
[2020-01-12] MEDS: MORPHINE SULFATE 4 MG/ML SYR IVP PRN (11:57)
--- NOTE | 2020-01-12 11:57 | NUR ---
GAVE PT MORPHINE FOR PAIN FROM SURGICAL SITE, PAIN 10/10, EDUCATION GIVEN, PT VERBALIZED UNDERSTANDING, PT STABLE, CALL LIGHT WITHIN REACH.
[2020-01-12 12:00] VITALS: BP 116/45
[2020-01-12] MEDS: INSULIN LISPRO SLIDING SCALE 100 UNITS/ML VIAL SUBQ PRN ×2 (12:00→17:23)
--- NOTE | 2020-01-12 12:00 | NUR ---
GAVE PT HUMALOG FOR BLOOD GLUCOSE OF 300, PT EDUCATION GIVEN, PT VERBALIZED UNDERSTANDING, PT STABLE, CALL LIGHT WITHIN REACH.
[2020-01-12] MEDS: GAUZE TP SCH (13:00)
--- NOTE | 2020-01-12 13:20 | NUR ---
SPOKE TO MONICA FROM [facility] AND GAVE AUTH# [id number].
--- NOTE | 2020-01-12 13:40 | NUR ---
PT ASLEEP IN BED, NO SIGNS OF DISTRESS NOTED, WILL CONTINUE TO MONITOR, CALL LIGHT WITHIN REACH.
[2020-01-12 16:00] VITALS: BP 115/50
--- NOTE | 2020-01-12 16:01 | NUR ---
EMPTY PT'S COLOSTOMY OF SMALL HARD STOOL, PT TOLERATED WELL, EDUCATION GIVEN, PT VERBALIZED UNDERSTANDING, PT IS STABLE, CALL LIGHT WITHIN REACH.
--- NOTE | 2020-01-12 17:23 | NUR ---
GAVE HUMALOG FOR BLOOD GLUCOSE OF 166, PT EDUCATION GIVEN, PT VERBALIZED UNDERSTANDING, PT TOLERATED WELL, PT IS STABLE, CALL LIGHT WITHIN REACH.
--- NOTE | 2020-01-12 19:10 | NUR ---
PT IS STABLE, GAVE REPORT TO NIGHT NURSE FOR CONTINUITY OF CARE.
--- NOTE | 2020-01-12 19:26 | NUR ---
RECEIVED BEDSIDE REPORT FROM AM NURSE, PT A, AO X 2, CONFUSED IV RUNNING NS AT 10ML, COLOSTOMY INTACT, HIP ABDUCTOR IN PLACE, PT ON 2L NC OXYGEN, PT STABLE, NO SIGNS OF DISTRESS NOTED, CALL LIGHT WITHIN REACH, ALL NEEDS MET, UPDATE WHITE BOARD, WILL CONTINUE TO MONITOR.
[2020-01-12 20:00] VITALS: BP 123/43
--- NOTE | 2020-01-12 22:17 | NUR ---
PT BP 123, 43 HR 66- WNL, WILL HOLD THE BP MEDS.
[2020-01-13] VITALS: BP 120/74
--- NOTE | 2020-01-13 01:00 | NUR ---
WOUND PHOTO TAKEN AND WOUND CARE DONE
--- NOTE | 2020-01-13 01:27 | NUR ---
PT AGITATED; CALLING FOR HELP WHEN THE NURSE AND CABANA ATTENDANT GO TO HER ROOM EVERY SO OFTEN AND RUDE TO THE CABANA ATTENDANT'S WILL ADMINISTER ATIVAN FOR ANXIETY.
[2020-01-13] MEDS: LORazepam 2 MG/ML VIAL IVP PRN (01:31)
--- NOTE | 2020-01-13 02:18 | NUR ---
PT KEEPS ON CALLING , ALTERED LEVEL OF CONSCIOUSNESS.PT SAID THAT IT IS MORNING AND THAT WE ARE LYING. REORIENTED THE PATIENT TO REALITY. INFORMED MY CHARGE NURSE, EMI.
--- NOTE | 2020-01-13 03:40 | NUR ---
TOOK A PICTURE OF THE LEFT HIP S/P ORIFF.LOGROLLING DONE, MAINTAINED ABDUCTION, CHECKED THE BACK/ SACRUM/BUTTOCKS NO REDNESS NOTED.
[2020-01-13 04:00] VITALS: BP 118/76
[2020-01-13] MEDS: BLOOD GLUCOSE MONITORING 1 DEV DEV FS SCH ×2 (06:36→11:30)
--- NOTE | 2020-01-13 07:21 | NUR ---
PT A, A O X 2, ALTERED LEVEL OF CONSCIOUSNESS. PT UNSTABLE.
--- NOTE | 2020-01-13 07:22 | NUR ---
RECEIVED BEDSIDE REPORT FROM NIGHTSHIFT NURSE. PT IN STABLE CONDITION. PT SLEEPING IN BED EASILY AROUSABLE NO SIGNS OF DISTRESS NOTED. TELE MONITOR ATTACHED. REVIEWED PLAN OF CARE WITH PATIENT REINFORCEMENT NEEDED. SAFETY MEASURES IN PLACE.
[2020-01-13 08:00] VITALS: BP 127/45
[2020-01-13 08:48] VITALS: BP 127/45
[2020-01-13] MEDS: cloNIDine 0.1 MG TAB PO SCH (08:48)
[2020-01-13] MEDS: FUROSEMIDE 40 MG TAB PO SCH (08:49)
[2020-01-13] MEDS: PROPRANOLOL 20 MG TAB PO SCH (08:49)
[2020-01-13] MEDS: ATENOLOL 50 MG TAB PO SCH (08:50)
[2020-01-13] MEDS: LISINOPRIL 20 MG TAB PO SCH (08:50)
[2020-01-13] MEDS: MINOXIDIL 2.5 MG TAB PO SCH (08:50)
--- NOTE | 2020-01-13 08:51 | NUR ---
SCHEDULED MEDS NOT GIVEN DUE TO DIALYSIS SCHEDULED LATER TODAY. WILL CONTINUE TO MONITOR.
[2020-01-13] MEDS ORDERED: EPOETIN ALFA 2,000 UNITS/ML VIAL IV SCH (09:00)
[2020-01-13] MEDS: NACL 0.9% 1,000 ML IV SCH (11:25)
[2020-01-13] MEDS: INSULIN LISPRO SLIDING SCALE 100 UNITS/ML VIAL SUBQ PRN (12:24)
--- NOTE | 2020-01-13 12:30 | NUR ---
HD COMPLETED 2L OUT. WILL CONTINUE TO MONITOR.
[2020-01-13] MEDS: GAUZE TP SCH (12:42)
--- NOTE | 2020-01-13 15:00 | NUR ---
CALLED [facility] AND SPOKE TO OLGA DAVILA TO GIVE REPORT. ANSWERED ALL OF RN'S QUESTIONS AND NOTIFIED HER OF TRANSPORT TIME BETWEEN [phone]. RN VERBALIZED UNDERSTANDING AND TO AWAIT FOR PATIENT'S ARRIVAL. IV SITE REMOVED WITH MINIMAL BLOOD AND LUMEN COMPLETELY INTACT. ID BANDS REMOVED. MACDONALD CATHETER REMOVED PER MD ORDERS. DISCHARGE INSTRUCTIONS PROVIDED TO PATIENT AT BEDSIDE, PATIENT VERBALIZED UNDERSTANDING, HOWEVER, CANNOT SIGN AT THIS TIME D/T WEAKNESS. INSTRUCTIONS PROVIDED TO PATIENT IN PREFERRED LANGUAGE OF WELSH, FOLLOW-UP WITH MD AT [facility], AND FOLLOW-UP WITH DR. SALAZAR. ANSWERED ALL OF PATIENT'S QUESTIONS REGARDING TRANSFER. PATIENT VERBALIZED COMPLETE UNDERSTANDING. [facility] ON UNIT TO TAKE PATIENT TO [facility]. PATIENT DISCHARGED AT THIS TIME VIA TRANSPORTERS IN STABLE CONDITION.
== END 2020-01-13 15:00 | DRG 469 ==
LOC: MED 02:42 → MTU 06:09
PROVIDERS: ADMIT Internal Medicine Pulmonary Disease; ATTEND Internal Medicine Pulmonary Disease
PROC: 5A1D70Z Performance of Urinary Filtration, Intermittent, Less than 6 Hours Per Day (ICD-10-PCS; 2020-01-08)
PROC: 5A1D70Z Performance of Urinary Filtration, Intermittent, Less than 6 Hours Per Day (ICD-10-PCS; 2020-01-10)
PROC: 0SRS0JA Replacement of Left Hip Joint, Femoral Surface with Synthetic Substitute, Uncemented, Open Approach (ICD-10-PCS; principal; 2020-01-10 07:30)
PROC: 5A1D70Z Performance of Urinary Filtration, Intermittent, Less than 6 Hours Per Day (ICD-10-PCS; 2020-01-13)
DX: S72.012A Unspecified intracapsular fracture of left femur, initial encounter for closed fracture (principal); N18.6 End stage renal disease; I13.2 Hypertensive heart and chronic kidney disease with heart failure and with stage 5 chronic kidney disease, or end stage renal disease; I50.32 Chronic diastolic (congestive) heart failure; E11.22 Type 2 diabetes mellitus with diabetic chronic kidney disease; W18.30XA Fall on same level, unspecified, initial encounter; E87.5 Hyperkalemia; B95.62 Methicillin resistant Staphylococcus aureus infection as the cause of diseases classified elsewhere; K57.90 Diverticulosis of intestine, part unspecified, without perforation or abscess without bleeding; D63.1 Anemia in chronic kidney disease; Z99.2 Dependence on renal dialysis; Z88.5 Allergy status to narcotic agent; Z79.899 Other long term (current) drug therapy; Z93.3 Colostomy status; Y93.89 Activity, other specified; Y99.8 Other external cause status; Z90.49 Acquired absence of other specified parts of digestive tract; Y92.091 Bathroom in other non-institutional residence as the place of occurrence of the external cause; Z79.4 Long term (current) use of insulin
CPT/HCPCS: 36415; 70450; 71045; 72125; 72192; 73501; 73502; 80053; 82948; 83880; 84484; 84703; 85025; 85610; 85730; 86886; 86900; 86901; 87081; 88305; 88311; 90935; 93005; 96374; 96375; 97110; 97112; 97530; 99285; C1776; J0360; J0690; J0885; J1170; J1644; J1815; J2060; J2270; J2405; J2704; J2765; J3010; J3490; J7030; J7060; Q0092

== ENCOUNTER 2020-03-02 10:19 | Inpatient (IN) | payer OTHER, SELFPAY ==
[~2020-03-02] VITALS: Ht 167.6 cm; Wt 81.6 kg
[2020-03-02 10:25] VITALS: BP 195/69
--- NOTE | 2020-03-02 10:30 | NUR ---
59 y/o female biba from [facility] c/o cough and fatigue starting this morning. pt states dry hacking cough, denies sob. states she feels more tired than normal. presents with oral temp of 99.1. rr even and unlabored, denies nausea/vomiting. abd soft, round, nontender to palp. pt positioned for comfort, tearful at time, but easily distracted. gcs of 15 upon arrival. pt placed on monitor. medhx: ESRD, cardiac failure, dm allergies: codeine
--- NOTE | 2020-03-02 10:48 | NUR ---
rsv, influenza, and covid-19 swab collected from pt. pt tolerated well
--- NOTE | 2020-03-02 11:16 | NUR ---
straight cath performed, 300cc of urine collected from pt. pt tolerated procedure well.
--- NOTE | 2020-03-02 11:21 | NUR ---
lab at bedside for blood culture and lab collection
--- NOTE | 2020-03-02 11:30 | NUR ---
IV 22GA RT HAND DONE-BY RN BETSY SANTANA.
[2020-03-02 11:36] LABS: APPEARANCE,URINE CLEAR (CLEAR); BILIRUBIN,URINE NEGATIVE (NEGATIVE); BLOOD, URINE 1+ (NEGATIVE); COLOR,URINE YELLOW (YELLOW); LEUKOCYTE ESTERASE ,URINE NEGATIVE (NEGATIVE); NITRITE, URINE NEGATIVE (NEGATIVE); UGLUCOSE 2+ (NEGATIVE)
[2020-03-02 11:41] LABS: BASOPHILS # (AUTO) 0.1 K/uL (0.00-0.22); BASOPHILS % (AUTO) 0.6 % (0.0-2.0); EOSINOPHILS # (AUTO) 0.1 K/uL (0-0.4); EOSINOPHILS % (AUTO) 1.4 % (0.0-4.0); HEMATOCRIT 35.3 % (36-48); HEMOGLOBIN 11.4 g/dL (12.0-16.0); LYMPHOCYTES # (AUTO) 0.8 K/uL (2.5-16.5); MEAN CORPUSCULAR HEMOGLOBIN 28 pg (27-31); MEAN CORPUSCULAR HGB CONC 32 g/dL (33-37); MEAN CORPUSCULAR VOLUME 87.8 fL (80-94); MONOCYTES # (AUTO) 0.5 K/uL (0.8-1.0); MONOCYTES % (AUTO) 5.8 % (1.7-9.3); NEUTROPHILS # (AUTO) 6.9 K/uL (1.8-7.7); NEUTROPHILS % (AUTO) 82.2 % (42.2-75.2); PLATELET COUNT (AUTO) 245 K/uL (140-450); RED BLOOD CELL COUNT(AUTO) 4.02 MIL/uL (4.20-5.40); RED CELL DISTRIBUTION WIDTH 16.5 % (11.6-13.7); WHITE BLOOD COUNT (AUTO) 8.4 K/uL (4.8-10.8)
[2020-03-02 11:48] LABS: RSV NEGATIVE (NEGATIVE)
--- NOTE | 2020-03-02 11:49 | NUR ---
RADIOLOGY AT BEDSIDE
[2020-03-02 11:57] LABS: WBC,URINE 0-5 /HPF (0-5)
[2020-03-02 12:09] LABS: ALBUMIN 2.8 g/dL (3.4-5.0); ANION GAP 13.1 (8-16); CARBON DIOXIDE 25.8 mmol/L (21-32); POTASSIUM 5.9 mmol/L (3.5-5.1); TOTAL BILIRUBIN 0.4 mg/dL (0.0-1.0)
[2020-03-02 12:15] LABS: CREATININE 6.8 mg/dL (0.6-1.3)
[2020-03-02] MEDS ORDERED: LORazepam 2 MG/ML VIAL IVP PRN (12:25)
[2020-03-02] MEDS ORDERED: PROMETHAZINE 25 MG TAB PO PRN (12:25)
[2020-03-02] MEDS ORDERED: MORPHINE SULFATE 4 MG/ML SYR IVP PRN (12:25)
[2020-03-02] MEDS ORDERED: ONDANSETRON 4 MG/2 ML VIAL IVP PRN (12:25)
[2020-03-02] MEDS ORDERED: SODIUM BICARBONATE 8.4% PFS 50 MEQ/50 ML SYR IVP ONE (12:25)
[2020-03-02] MEDS ORDERED: INSULIN REGULAR, HUMAN 100 UNIT/ML VIAL SUBQ ONE (12:25)
[2020-03-02] MEDS ORDERED: DEXTROSE 50% 50 ML SYR IVP ONE (12:25)
[2020-03-02] MEDS: METOCLOPRAMIDE 10 MG TAB PO SCH ×3 (13:00→21:47)
--- NOTE | 2020-03-02 13:15 | NUR ---
RECEIVED REPORT FROM ER NURSE. ADMITTED A 59Y/O FEMALE FROM [facility] WITH CHIEF COMPLAINT OF COUGH AND FATIGUE. WITH ADM DX OF COUGH. WITH HX OF DM, HTN, ESRD, L HIP FRACTURE S/P REPAIR. A0X4, VERBAL, NO C/O PAIN, NO SOB, AFEBRILE, WITH EPISODES OF NONPRODUCTIVE COUGH. WITH R AND L HEEL OPEN WOUND UPON ADMISSION, DOCUMENTED. WITH R TUNNELED CATH. WITH COLOSTOMY. HEMODIALYSIS --. PLAN OF CARE DISCUSSED. PT VERBALIZED UNDERSTANDING. CALL LIGHT WITHIN REACH. WILL CONT TO MONITOR.
--- NOTE | 2020-03-02 13:18 | NUR ---
Patient will be admitted to care of DR JONES. Admited to MED SURG. Will go to room 117. Belongings list completed. Report to OLGA DOMINGUEZ.
--- NOTE | 2020-03-02 13:21 | NUR ---
CALLED MOTHER TO INFORM HER THAT PT WAS ADMITTED TO MED SURG. MARIA ALEJANDRA MEDINA
--- NOTE | 2020-03-02 15:15 | NUR ---
DUE IV ABX GIVEN ORDERED. INFUSING WELL. IV SITE AT RIGHT HAND 22G
--- NOTE | 2020-03-02 16:00 | NUR ---
OBTAINED CONSENT FOR HEMODIALYSIS. PT VERBALIZED UNDERSTANDING OF RISKS AND BENEFITS OF PROCEDURE.
[2020-03-02] MEDS: AZITHROMYCIN 500 MG in DEXTROSE 5% 250 ML IV SCH (16:10)
[2020-03-02 16:31] VITALS: BP 128/73
--- NOTE | 2020-03-02 17:30 | NUR ---
PT STARTED ON HEMODIALYSIS. IN STABLE CONDITION
[2020-03-02] MEDS ORDERED: ALTEPLASE 100 MG VIAL IV ONE (17:50)
[2020-03-02] MEDS: HYDROcodone/APAP 5/325 MG 1 TAB TAB PO PRN (18:16)
[2020-03-02] MEDS ORDERED: ALTEPLASE 2 MG VIAL MC SCH (19:00)
--- NOTE | 2020-03-02 19:25 | NUR ---
ENDORSED TO NIGHT RN FOR CONTINUITY OF CARE. STILL ON DIALYSIS. IN STABLE CONDITION
--- NOTE | 2020-03-02 19:26 | NUR ---
RECEIVED REPORT FROM DAY SHIFT NURSE. PATIENT IN BED RESTING. DIALYSIS ONGOING. DIALYSIS NURSE ON BEDSIDE. ELIE CATHETER ON R CHEST IN PLACE. IV ACCESS ON R HAND G22 PATENT AND INFUSING WELL. PATIENT DENIES ANY PAIN OR DISCOMFORT. RESPIRATIONS EVEN AND UNLABORED. PLAN OF CARE DISCUSSED. SAFETY MEASURES IN PLACE. BED IN LOW POSITION, SIDE RAILS RAISED, CALL LIGHT WITHIN REACH. WILL CONTINUE TO MONITOR.
[2020-03-02 20:00] VITALS: BP 154/70
--- NOTE | 2020-03-02 21:30 | NUR ---
DIALYSIS DONE. 2.5L OUT. VITAL SIGNS STABLE. WILL CONTINUE TO MONITOR.
[2020-03-02] MEDS: cloNIDine 0.1 MG TAB PO SCH ×2 (21:47→23:17)
[2020-03-02] MEDS: MINOXIDIL 2.5 MG TAB PO SCH (21:47)
[2020-03-02] MEDS: PROPRANOLOL 20 MG TAB PO SCH (21:48)
--- NOTE | 2020-03-02 21:50 | NUR ---
ROUNDS DONE. SCHEDULED MEDICATIONS GIVEN. PATIENT DENIES ANY PAIN OR DISCOMFORT. IVF INFUSING WELL. SAFETY MEASURES IN PLACE. PATIENT KEPT COMFORTABLE. WILL CONTINUE TO MONITOR.
[2020-03-03] VITALS: BP 153/69
--- NOTE | 2020-03-03 00:07 | NUR ---
ROUNDS MADE. VITAL SIGNS ARE STABLE. RESPIRATIONS EVEN AND UNLABORED. SKIN IS WARM AND DRY. DENIES ANY PAIN OR DISCOMFORT. PATIENT KEPT COMFORTABLE. SAFETY MEASURES IN PLACE. WILL CONTINUE TO MONITOR.
--- NOTE | 2020-03-03 02:26 | NUR ---
PATIENT ASLEEP. RESPIRATIONS EVEN AND UNLABORED. NO S/SX OF DISTRESS NOTED. PATIENT KEPT SAFE AND COMFORTABLE. WILL CONTINUE TO MONITOR.
[2020-03-03 04:00] VITALS: BP 159/69
--- NOTE | 2020-03-03 04:33 | NUR ---
ROUNDS MADE. VITAL SIGNS STABLE. PATIENT IN BED RESTING. DENIES ANY DISCOMFORT AT THIS TIME. RESPIRATIONS EVEN AND UNLABORED. SKIN IS WARM AND DRY. SAFETY MEASURES IN PLACE. PATIENT KEPT COMFORTABLE. WILL CONTINUE TO MONITOR.
[2020-03-03 07:16] LABS: BASOPHILS # (AUTO) 0.1 K/uL (0.00-0.22); BASOPHILS % (AUTO) 1.7 % (0.0-2.0); EOSINOPHILS # (AUTO) 0.2 K/uL (0-0.4); EOSINOPHILS % (AUTO) 3.1 % (0.0-4.0); HEMOGLOBIN 10.6 g/dL (12.0-16.0); LYMPHOCYTES % (AUTO) 13.7 % (20.5-51.1); MEAN CORPUSCULAR HEMOGLOBIN 28 pg (27-31); MEAN CORPUSCULAR HGB CONC 32 g/dL (33-37); MEAN CORPUSCULAR VOLUME 86.6 fL (80-94); MONOCYTES # (AUTO) 0.5 K/uL (0.8-1.0); MONOCYTES % (AUTO) 7.1 % (1.7-9.3); NEUTROPHILS # (AUTO) 5.2 K/uL (1.8-7.7); NEUTROPHILS % (AUTO) 74.4 % (42.2-75.2); PLATELET COUNT (AUTO) 223 K/uL (140-450); RED CELL DISTRIBUTION WIDTH 16.5 % (11.6-13.7); WHITE BLOOD COUNT (AUTO) 6.9 K/uL (4.8-10.8)
--- NOTE | 2020-03-03 07:18 | NUR ---
ENDORSED TO DAY SHIFT NURSE FOR CONTINUITY OF CARE. PLAN OF CARE DISCUSSED. PATIENT IN STABLE CONDITION.
--- NOTE | 2020-03-03 07:20 | NUR ---
RECEIVED REPORT FROM NIGHT NURSE. PT IN STABLE CONDITION, AAOX4, DENIES PAIN AT THIS TIME. RESPIRATIONS EVEN AND UNLABORED ON ROOM AIR. BILATERAL HEEL WOUNDS PRESENT. R ELIE CATH IN PLACE AND R HAND 22G TKO IN PLACE, PATENT AND ASYMPTOMATIC. SAFETY MEASURES IN PLACE. CALL LIGHT WITHIN REACH. WILL CONTINUE TO MONITOR.
[2020-03-03 07:27] LABS: ALBUMIN 2.7 g/dL (3.4-5.0); ANION GAP 16.6 (8-16); CARBON DIOXIDE 25.1 mmol/L (21-32); POTASSIUM 4.7 mmol/L (3.5-5.1); TOTAL BILIRUBIN 0.4 mg/dL (0.0-1.0)
[2020-03-03 07:35] LABS: CREATINE KINASE MB 1.4 ng/mL (0-3.6)
[2020-03-03 08:00] VITALS: BP 183/73
[2020-03-03] MEDS ORDERED: NON-FORMULARY ITEM (Cholecalciferol (Vitamin D3) (Vitamin D3) 50 MCG) PO SCH (09:00)
[2020-03-03] MEDS: PROPRANOLOL 20 MG TAB PO SCH ×2 (09:18→21:10)
[2020-03-03] MEDS: cloNIDine 0.1 MG TAB PO SCH ×2 (09:18→21:11)
[2020-03-03] MEDS: MINOXIDIL 2.5 MG TAB PO SCH ×2 (09:18→21:09)
[2020-03-03] MEDS: LISINOPRIL 20 MG TAB PO SCH (09:18)
[2020-03-03] MEDS: CLOPIDOGREL 75 MG TAB PO SCH (09:18)
[2020-03-03] MEDS: METOCLOPRAMIDE 10 MG TAB PO SCH ×4 (09:18→21:08)
[2020-03-03] MEDS: CHOLECALCIFEROL 1,000 IU TAB PO SCH (09:18)
[2020-03-03] MEDS: FUROSEMIDE 40 MG TAB PO SCH (09:18)
--- NOTE | 2020-03-03 09:19 | NUR ---
MEDICATIONS ADMINISTERED PER ORDER. PT TOLERATED WELL, NO DISTRESS NOTED. PT CLEANED AND REPOSITION WITH ASSISTANCE OF DEAF/HARD OF HEARING SPECIALIST. PT AFEBRILE, MILD INTERMITTENT COUGH PRESENT, NO CONGESTION. DENIES BODY PAIN. WILL CONTINUE TO MONITOR.
--- NOTE | 2020-03-03 12:13 | NUR ---
PT REPOSITIONED, LUNCH TRAY GIVEN AND MEDICATIONS ADMINISTERED PER ORDER. PT TOLERATED WELL, NO DISTRESS NOTED. RESPIRATIONS EVEN AND UNLABORED ON ROOM AIR, AFEBRILE, NO NASAL CONGESTION OR BODY ACHES. WILL CONTINUE TO MONITOR.
[2020-03-03] MEDS ORDERED: FLUTICASONE NASAL 50 MCG/ACTUATION 16 GM BTL NS SCH (12:25)
--- NOTE | 2020-03-03 13:07 | NUR ---
DC PLANN[age] YRS OLD FEMALE PATIENT WAS ADMITTED FROM HOME WITH A DX OF COUGH. PT HAS A HX OF ESRD ON HEMODIALYSIS MWF, HIP FRACTURE S/P REPAIR. COVID 19 TESTED , PT EVALUATION, CONTINUE HOME MEDS AND NEPHROLOGY CONSULT. DC PLAN AWAITING FOR COVID RESULT AND POSSIBLE SNF PLACEMENT . CM TO FOLLOW Addendum: 03/04/20 at 1052 by Cleestina Iqbal CM DC PLANNING: SEEN BY OPERATIONS SUPERVISOR [address] ROMULO LR, ORDERED HD TODAY,CONTINUE RENAL DOSE MEDS, DC PLAN TO GO BACK TO [facility] , FAXED ALL THE PAPERWORK. CM TO FOLLOW Addendum: 03/04/20 at 1339 by Celestina Iqbal CM DC PLANNING: CALLED [facility] SPOKE WITH ALIYA VICTOR THE AUTH # FOR SNF [id number] AND AUTH FOR TRANSPORT [id number] CALLED [facility] SPOKE WITH MADY, ACCEPTED PT AND PT CAN GO TO ROOM 5 # TO GIVE REPORT [phone] ARRANGED TRANSPORT WITH [facility] [phone] SILICATOR TIME IS 4 PM . NOTIFIED ÁLVARO ESPINOZA.
--- NOTE | 2020-03-03 14:02 | NUR ---
MEDICATIONS ADMINISTERED PER ORDER. SPOKE TO PTS MOTHER ON THE PHONE AND ARRANGED FOR HER TO CALL PTS ROOM. PT TOLERATED WELL, NO DISTRESS NOTED. WILL CONTINUE TO MONITOR.
[2020-03-03] MEDS: AZITHROMYCIN 500 MG in DEXTROSE 5% 250 ML IV SCH (16:00)
--- NOTE | 2020-03-03 17:18 | NUR ---
MEDICATIONS ADMINISTERED PER ORDER. VITAL SIGNS TAKEN. NO DISTRESS NOTED, PT DENIES PAIN. AFEBRILE, NO NASAL CONGESTION. RESPIRATIONS EVEN AND UNLABORED ON ROOM AIR. WILL CONTINUE TO MONITOR.
--- NOTE | 2020-03-03 18:15 | NUR ---
CALLED [facility], THEY ARE UNABLE TO RECEIVE PT TODAY DUE TO THE FACT THEY NEED TO ISOLATE PT PER PROTOCOL AND THEY ARE UNABLE TO PREPARE THE ROOM AT THIS TIME. SPOKE TO REMI WHO WILL RELAY THE MESSAGE AND CALL BACK AT [phone] ON SUNDAY 03/04. DR JONES NOTIFIED
--- NOTE | 2020-03-03 19:03 | NUR ---
PT IN STABLE CONDITION. WILL ENDORSE TO NIGHT NURSE FOR CONTINUITY OF CARE.
--- NOTE | 2020-03-03 19:10 | NUR ---
RECEIVED BEDSIDE ENDORSEMENT FROM AM SHIFT RN. PATIENT AWAKE. NO SOB. RESPIRATION EVEN AND UNLABORED. WITH PRESSURE WOUND ON BILATERAL HEELS. R ELIE BRODY NOTED. LOW BED AND BED ALARM IN PLACE. PLAN OF CARE WAS DISCUSSED. WILL CONTINUE TO MONITOR. Addendum: 03/04/20 at 0504 by Macy Zelaya RN NOTED R HAND SWELLING. PER OLGA DE DIOS. THE IV SITE CAUSED THE SWELLING.
[2020-03-03] MEDS: HYDROcodone/APAP 5/325 MG 1 TAB TAB PO PRN (19:46)
--- NOTE | 2020-03-03 19:46 | NUR ---
PATIENT C/O R HAND PAIN 04/29. PATIENT'S R HAND WAS SWOLLEN. REPOSITIONED. NORCO GIVEN ORDERED. TOLERATED WELL.
--- NOTE | 2020-03-03 20:46 | NUR ---
PATIENT IS RESTING. DENIES PAIN. NO SOB.
[2020-03-04] VITALS: BP 144/53
[2020-03-04] MEDS: HYDROcodone/APAP 5/325 MG 1 TAB TAB PO PRN (02:18)
--- NOTE | 2020-03-04 02:18 | NUR ---
PATIENT C/O 610 R HAND PAIN. ICE PACK REQUESTED BY PATIENT. PUT ICE PACK TO R HAND. GAVE NORCO ORDERED.
--- NOTE | 2020-03-04 03:18 | NUR ---
PATIENT IS ASLEEP. NO PAIN NOTED. RESPIRATION EVEN AND UNLABORED. WILL CONTINUE TO MONITOR.
--- NOTE | 2020-03-04 06:00 | NUR ---
PATIENT IS SLEEPING. RESPIRATION EVEN AND UNLABORED. CALL LIGHT WITHIN REACH
[2020-03-04 07:18] LABS: BASOPHILS # (AUTO) 0.1 K/uL (0.00-0.22); EOSINOPHILS # (AUTO) 0.2 K/uL (0-0.4); HEMATOCRIT 36.5 % (36-48); HEMOGLOBIN 11.9 g/dL (12.0-16.0); LYMPHOCYTES # (AUTO) 1.2 K/uL (2.5-16.5); LYMPHOCYTES % (AUTO) 20.5 % (20.5-51.1); MEAN CORPUSCULAR HEMOGLOBIN 28 pg (27-31); MEAN CORPUSCULAR HGB CONC 33 g/dL (33-37); MEAN CORPUSCULAR VOLUME 87.4 fL (80-94); MONOCYTES # (AUTO) 0.6 K/uL (0.8-1.0); MONOCYTES % (AUTO) 10.5 % (1.7-9.3); NEUTROPHILS # (AUTO) 3.8 K/uL (1.8-7.7); PLATELET COUNT (AUTO) 223 K/uL (140-450); RED BLOOD CELL COUNT(AUTO) 4.17 MIL/uL (4.20-5.40); RED CELL DISTRIBUTION WIDTH 16.8 % (11.6-13.7); WHITE BLOOD COUNT (AUTO) 5.8 K/uL (4.8-10.8)
[2020-03-04 07:39] LABS: ALBUMIN 2.8 g/dL (3.4-5.0); ANION GAP 18.6 (8-16); CARBON DIOXIDE 24.9 mmol/L (21-32); POTASSIUM 5.5 mmol/L (3.5-5.1); TOTAL BILIRUBIN 0.3 mg/dL (0.0-1.0)
--- NOTE | 2020-03-04 07:45 | NUR ---
GAVE ENDORSEMENT TO AM SHIFT RN FOR CONTINUITY OF CARE.
[2020-03-04 07:46] LABS: CREATININE 6.2 mg/dL (0.6-1.3)
--- NOTE | 2020-03-04 07:46 | NUR ---
RECEIVED CRITICAL LAB VALUE FROM [place] FROM LAB. CREAT: 6.2; BUN 64. PT IS A DIALYSIS PT WITH DIALYSIS SCHEDULED FOR TODAY. NO OTHER ACTION NEEDED AT THIS TIME.
--- NOTE | 2020-03-04 07:47 | NUR ---
RECEIVED BEDSIDE REPORT FROM [facility] AGENT NURSE, FOR CONTINUITY OF CARE. PT IS LYING IN BED, [id number]. RESPIRATIONS ARE EVEN AND UNLABORED, BREATHING TO ROOM AIR. RT ELIE CATH IS PATENT, INTACT. NO IV IN PLACE, PT IS SCHEDULED FOR DISCHARGE TODAY. DIALYSIS M/W/F; DIALYSIS SCHEDULED FOR TODAY. SAFETY MEASURES IN PLACE; CALL LIGHT WITHIN REACH, BED IN LOW POSITION. NO ACUTE DISTRESS NOTED. WILL CONTINUE TO MONITOR.
[2020-03-04 08:00] VITALS: BP 161/72
[2020-03-04] MEDS ORDERED: FLUTICASONE NASAL 50 MCG/ACTUATION 16 GM BTL NS SCH (09:00)
[2020-03-04] MEDS: cloNIDine 0.1 MG TAB PO SCH (09:00)
[2020-03-04] MEDS: MINOXIDIL 2.5 MG TAB PO SCH (09:00)
[2020-03-04] MEDS: PROPRANOLOL 20 MG TAB PO SCH (09:00)
[2020-03-04] MEDS: LISINOPRIL 20 MG TAB PO SCH (09:00)
[2020-03-04] MEDS: FUROSEMIDE 40 MG TAB PO SCH (09:00)
--- NOTE | 2020-03-04 10:50 | NUR ---
PT'S PRN ATIVAN WAS GIVEN BEFORE DIALYSIS, AT THE PT'S REQUEST. PT'S SCHEDULED PO MEDS WERE GIVEN. MEDICATION EDUCATION WAS PROVIDED, PT VERBALIZED UNDERSTANDING. WILL REASSESS PAIN SAFETY MEASURES IN PLACE. WILL CONTINUE TO MONITOR.
[2020-03-04] MEDS: METOCLOPRAMIDE 10 MG TAB PO SCH ×3 (10:59→18:36)
[2020-03-04] MEDS: CLOPIDOGREL 75 MG TAB PO SCH (11:00)
--- NOTE | 2020-03-04 11:05 | NUR ---
PT'S SCHEDULED MEDS WERE GIVEN. MEDICATION EDUCATION PROVIDED. BP MEDS WERE HELD DUE TO DIALYSIS TODAY. DIALYSIS NURSE, PALOMO IS AT BEDSIDE. SAFETY MEASURERS IN PLACE, WILL CONTINUE TO MONITOR.
[2020-03-04] MEDS: CHOLECALCIFEROL 1,000 IU TAB PO SCH (12:36)
--- NOTE | 2020-03-04 12:41 | NUR ---
PT'S SCHEDULED PO MEDICATION GIVEN. MEDICATION EDUCATION PROVIDED. PT TOLERATED PO MEDICATION WELL. DIALYSIS NURSE IS STILL AT BEDSIDE. NO DISTRESS NOTED. WILL CONTINUE TO MONITOR.
--- NOTE | 2020-03-04 13:00 | NUR ---
DRESSINGS CHANGED ON BILATERAL HEEL PRESSURE SORES, WHICH WERE PRESENT ON ADMISSION. PICTURES TAKEN.
--- NOTE | 2020-03-04 13:30 | NUR ---
SPOKE WITH AL, PT IS SCHEDULED FOR DISCHARGE TODAY, AROUND 1600.
--- NOTE | 2020-03-04 13:59 | NUR ---
DIALYSIS NURSE, PALOMO, IS STILL AT BEDSIDE. SHE INFORMED ME THAT 3.5 LITERS HAVE BEEN REMOVED. PT WILL BE TRANSFERRING TO [facility] TODAY. NO DISTRESS NOTED. WILL CONTINUE TO MONITOR.
[2020-03-04 15:18] VITALS: BP 144/53
[2020-03-04 16:00] VITALS: BP 149/68
[2020-03-04] MEDS: AZITHROMYCIN 500 MG in DEXTROSE 5% 250 ML IV SCH (16:00)
--- NOTE | 2020-03-04 18:40 | NUR ---
PT'S DISCHARGE PAPERWORK HAS BEEN COMPLETED, WAITING ON TRANSPORTATION FOR TRANSFER BACK TO [facility].
--- NOTE | 2020-03-04 19:14 | NUR ---
DISCHARGE PAPERWORK SIGNED. PT'S IV REMOVED, WITH CATHETER INTACT. ARM BANDS REMOVED. PT CHANGED INTO PINK BY CNAS. PT'S PAPERWORK WAS GIVEN TO TRANSPORT PERSONNEL. HER BELONGINGS WERE IN HER POSSESSION. PT WAS ESCORTED OFF UNIT VIA GURNEY BY TRANSPORT PERSONNEL.
== END 2020-03-04 19:25 | DRG 152 ==
LOC: MED 10:19 → EEVIPCON 10:19 → MTU 12:28 → OBSVTOIN 03-03 12:26
PROVIDERS: ADMIT Internal Medicine Pulmonary Disease; ATTEND Internal Medicine Pulmonary Disease
PROC: 5A1D70Z Performance of Urinary Filtration, Intermittent, Less than 6 Hours Per Day (ICD-10-PCS; principal; 2020-03-04)
DX: J31.0 Chronic rhinitis (principal); N18.6 End stage renal disease; E87.1 Hypo-osmolality and hyponatremia; I50.32 Chronic diastolic (congestive) heart failure; I13.2 Hypertensive heart and chronic kidney disease with heart failure and with stage 5 chronic kidney disease, or end stage renal disease; D64.9 Anemia, unspecified; Z96.649 Presence of unspecified artificial hip joint; R26.9 Unspecified abnormalities of gait and mobility; L89.620 Pressure ulcer of left heel, unstageable; L89.610 Pressure ulcer of right heel, unstageable; R79.89 Other specified abnormal findings of blood chemistry; E11.22 Type 2 diabetes mellitus with diabetic chronic kidney disease; Z20.828 Contact with and (suspected) exposure to other viral communicable diseases; E87.5 Hyperkalemia; Z99.2 Dependence on renal dialysis; Z88.5 Allergy status to narcotic agent; Z79.899 Other long term (current) drug therapy; Z90.49 Acquired absence of other specified parts of digestive tract; Z87.81 Personal history of (healed) traumatic fracture; Z91.81 History of falling
CPT/HCPCS: 96372; 96374; 96375; 99218; 99291; G0378; 36415; 36600; 71045; 80053; 81001; 82550; 82553; 82728; 82803; 83605; 83615; 84484; 85025; 85379; 86140; 87040; 87081; 87086; 87420; 87804; 90935; 93005; J0456; J0696; J1644; J1815; J2060; J2997; J7030; J7060; J8597; Q0092